=== PATIENT | female | born 1950 ===

== ENCOUNTER 2021-01-11 09:22 | Outpatient (REF) | payer MEDICARE, OTHER, SELFPAY | END 2021-01-11 09:23 | disposition home or self-care (01) | LOC: HO.LAB 09:22 | PROVIDERS: PCP Internal Medicine; Visit Provider Internal Medicine | DX: Z20.822 Contact with and (suspected) exposure to COVID-19 (principal) | CPT/HCPCS: C9803; U0003; U0005 ==

== ENCOUNTER 2021-02-25 13:11 | Outpatient (REF) | payer MEDICARE, OTHER, SELFPAY ==
[2021-02-25 14:47] LABS: Binax Internal Control QC Valid; Binax Lot number: 9864; Binax Now Covid-19 Ag Negative (Negative)
== END 2021-02-25 13:12 | disposition home or self-care (01) ==
LOC: HO.LAB 13:11
PROVIDERS: Visit Provider Internal Medicine
DX: Z20.822 Contact with and (suspected) exposure to COVID-19 (principal)
CPT/HCPCS: 36415; C9803

== ENCOUNTER 2021-03-18 15:23 | Inpatient (IN) | payer MEDICARE, OTHER, SELFPAY ==
--- NOTE | ~2021-03-18 | XR_ITS ---
EXAMINATION: XR CHEST CLINICAL INFORMATION: sob, bilateral crackles COMPARISON: 06/12/2019 TECHNIQUE: Frontal view of the chest was obtained. FINDINGS: Patchy foci of airspace opacification are evident in both lungs. No pleural effusion or pneumothorax. Cardiac and mediastinal contours are normal. No acute osseous findings. Mild degenerative spondylosis in the thoracic spine. XR/XR chest 1V IMPRESSION: Patchy bilateral airspace opacities which are most concerning for viral pneumonia provided the appropriate clinical symptoms. Multifocal subsegmental atelectasis is considered less likely.
[2021-03-18 15:34] VITALS: BP 118/68; PULSE 103; RESP 22; TEMP 35.9; O2SAT 85; BMI 28.9
[2021-03-18 15:47] VITALS: O2SAT 96
--- NOTE | 2021-03-18 16:03 | ECG_ITS ---
Test Reason : SOB Blood Pressure : / mmHG Vent. Rate : 091 BPM Atrial Rate : 091 BPM P-R Int : 146 ms QRS Dur : 094 ms QT Int : 360 ms P-R-T Axes : 023 014 062 degrees QTc Int : 442 ms Normal sinus rhythm Normal ECG When compared with ECG of 26-FEB-2018 13:06, Nonspecific T wave abnormality has replaced inverted T waves in Lateral leads Referred By: Kamala Pereira Electronically Signed By:Arnulfo Wiseman
--- NOTE | 2021-03-18 16:06 | ED_ITS ---
HPI - SOB/Dyspnea General Chief Complaint: Dyspnea Stated Complaint: SOB Time Seen by Provider: 03/18/21 15:48 Source: patient Mode of arrival: ambulatory Limitations: no limitations History of Present Illness HPI Narrative: Patient comes to the emergency room complaining of shortness of breath for 2 days. Patient states that the shortness of breath is worse with exertion and occasional dry cough Patient states that she has not received any of the COVID-19 vaccines. Patient denies chest pain. When patient walked to triage, her initial oxygen saturation is 85% on room air. Related Data Allergies Allergy/AdvReac Type Severity Reaction Status Date / Time No Known Allergies Allergy Verified 03/18/21 15:33 [No Known Allergies*] Review of Systems Review of Systems: Constitutional : No Weight loss, No Fever, No Chills, No Night Sweats, No Fatigue, No Malaise ENT/Mouth : No Hearing loss, No Ear Pain, No Nasal Congestion, No Sinus Pain, No Hoarseness, No sore throat, No Rhinorrhea, No Swallowing Difficulty Eyes: No Eye Pain, No Swelling, No Redness, No Foreign Body, No Discharge, No Vision Changes Cardiovascular : No Chest Pain, No SOB, No Dyspnea on Exertion, No Orthopnea, No Edema, No Palpitations Respiratory : Complaining of dry cough, complaining worsening shortness of breath over the last 24 hours, worse with exertion. Gastrointestinal : No Nausea, No Vomiting, No Diarrhea, No Constipation, No abdominal Pain, No Hematochezia, No Melena Genitourinary : no irregular bleeding, No Dysuria, No Urinary Frequency, No Hematuria, No Urinary Incontinence, No Urgency, No Flank Pain, No Urinary Flow Changes, No Hesitancy Musculoskeletal : No joint pain, No Myalgias, No Joint Swelling Skin : No Skin Lesions, No rash Neuro : No Weakness, No Numbness, No Paresthesias, No Loss of Consciousness, No Dizziness, No Headache Psych : No Anxiety/Panic, No Depression, No SI/HI/AH/VH, No Social Issues, Heme/Lymph: No Bruising, No Bleeding,No Lymphadenopathy Endocrine : No Polyuria, No Polydipsia, No Temperature Intolerance PMF Past Medical History Medical History (Updated 03/18/21 @ 17:37 by Kamala Pereira MD) Hypercholesteremia Hypertension Social History Social History Advance Directives: No Advance Directives Information Provided: Yes Physical Exam Vital Signs: Vital Signs: Last Vital Signs Temp 96.7 F L 03/18/21 15:34 Pulse 103 H 03/18/21 15:34 Resp 22 H 03/18/21 15:34 BP 118/68 03/18/21 15:34 Pulse Ox 96 03/18/21 15:47 BMI result Body Mass Index 28.9 Const: Other: Appearance: Alert. Oriented X3. No acute distress. Eyes: Pupils equal, round and reactive to light. ENT: Pharynx normal. Neck: Normal inspection. Neck supple. No lymph nodes noted. No crepitus CVS: Normal heart rate and rhythm. Pulses normal. Normal S1 and S2 Respiratory: On room air, patient desaturates to 85%. Since patient's oxygen saturation 94% on 4 L. bilateral crackles, no wheezing Abdomen: Soft and nontender. No rigidity. No distention. good BS x4 Skin: Skin warm and dry. Normal skin color. Normal skin turgor. Extremities: No lower extremity edema. No lower extremity edema. No Lacerations. No Rash Neuro: Oriented X 3. No motor deficit. No sensory deficit. Moving all extermities. No slurred speech. Course Course Course Narrative: At this time, all of patient's labs and imaging pending. COVID-19 strongly suspected. Patient was given IV dexamethasone and IV fluids. Patient stable on 4 L nasal cannula. At this time, patient's blood pressure within normal limits, no fever, sepsis not suspected that this time (16:11) Patient tested positive for COVID-19. Oxygen saturation drops to 85% on room air with minimal exertion. Patient being admitted. Patient discussed with Dr. Pérez MDM - SOB/Dyspnea Lab Data Result diagrams: 03/18/21 16:26 03/18/21 16:26 Labs: Lab Results 03/18/21 03/18/21 03/18/21 Range/Units 16:26 16:26 16:26 WBC 6.7 (4.8-10.8) X10*3/uL RBC 4.94 (4.20-5.50) X10*6/uL Hgb 14.7 (12.0-16.0) g/dl Hct 44.3 (37.0-47.0) % MCV 89.7 (80.0-98.0) fL MCH 29.8 (27.0-33.0) pg MCHC 33.2 (31.0-35.0) g/dl RDW 12.8 (11.0-16.0) % Plt Count 200 (160-400) X10*3/uL MPV 10.4 (9.4-12.3) fL Immature Gran % (Auto) 0.6 H (0.0-0.4) % Neut % (Auto) 77.2 H (45-73) % Lymph % (Auto) 15.4 L (20-40) % [place] % (Auto) 6.7 (2-11) % Eos % (Auto) 0.0 (0-4) % Baso % (Auto) 0.1 (0-2) % Lymph # (Auto) 1.0 L (1.2-4.9) X10*3/uL [place] # (Auto) 0.5 (0.1-1.2) X10*3/uL Eos # (Auto) 0.0 (0.0-0.4) X10*3/uL Baso # (Auto) 0.0 (0.0-0.2) X10*3/uL Abs Immat Gran (auto) 0.04 H (0.00-0.03) X10*3/uL Absolute Neuts (auto) 5.2 (2.0-8.3) x10*3/uL Absolute Nucleated RBC 0.000 (0.0-0.012) X10*3/uL Nucleated RBC % (auto) 0.0 (0.0-0.2) /100WBC Smear Tech's Comments VERIFIED PT (9.9-13.0) SEC INR (0.9-1.1) Sodium 139 (135-145) mmol/L Potassium 4.3 (3.3-5.1) mmol/L Chloride 101 (96-108) mmol/L Carbon Dioxide 27 (22-29) mmol/L Anion Gap 15 (12-20) BUN 13 (9-16) mg/dL Creatinine 0.94 (0.5-1.4) mg/dL Estim Creat Clear Calc 56.1 Estimated GFR 59 Random Glucose 121 H (60-115) mg/dL Lactic Acid (0.5-2.0) mmol/L Calcium 8.6 (8.4-10.2) mg/dL Total Bilirubin 0.8 (0.0-1.0) mg/dL Direct Bilirubin 0.4 (0.0-0.5) mg/dL AST 46 H (5-31) U/L ALT 24 (0-31) U/L Alkaline Phosphatase 43 (39-117) U/L Troponin I High Sens 10.9 (<3.5-17.0) ng/L B-Natriuretic Peptide (<100) pg/mL Total Protein 7.3 (6.5-8.0) g/dL Albumin 3.8 (3.5-5.0) g/dL COVID-19 (FERNANDO) (Negative) COVID-19 Clin Com 03/18/21 03/18/21 03/18/21 Range/Units 16:26 16:26 16:26 WBC (4.8-10.8) X10*3/uL RBC (4.20-5.50) X10*6/uL Hgb (12.0-16.0) g/dl Hct (37.0-47.0) % MCV (80.0-98.0) fL MCH (27.0-33.0) pg MCHC (31.0-35.0) g/dl RDW (11.0-16.0) % Plt Count (160-400) X10*3/uL MPV (9.4-12.3) fL Immature Gran % (Auto) (0.0-0.4) % Neut % (Auto) (45-73) % Lymph % (Auto) (20-40) % [place] % (Auto) (2-11) % Eos % (Auto) (0-4) % Baso % (Auto) (0-2) % Lymph # (Auto) (1.2-4.9) X10*3/uL [place] # (Auto) (0.1-1.2) X10*3/uL Eos # (Auto) (0.0-0.4) X10*3/uL Baso # (Auto) (0.0-0.2) X10*3/uL Abs Immat Gran (auto) (0.00-0.03) X10*3/uL Absolute Neuts (auto) (2.0-8.3) x10*3/uL Absolute Nucleated RBC (0.0-0.012) X10*3/uL Nucleated RBC % (auto) (0.0-0.2) /100WBC Smear Tech's Comments PT 13.5 H (9.9-13.0) SEC INR 1.2 H (0.9-1.1) Sodium (135-145) mmol/L Potassium (3.3-5.1) mmol/L Chloride (96-108) mmol/L Carbon Dioxide (22-29) mmol/L Anion Gap (12-20) BUN (9-16) mg/dL Creatinine (0.5-1.4) mg/dL Estim Creat Clear Calc Estimated GFR Random Glucose (60-115) mg/dL Lactic Acid 1.6 (0.5-2.0) mmol/L Calcium (8.4-10.2) mg/dL Total Bilirubin (0.0-1.0) mg/dL Direct Bilirubin (0.0-0.5) mg/dL AST (5-31) U/L ALT (0-31) U/L Alkaline Phosphatase (39-117) U/L Troponin I High Sens (<3.5-17.0) ng/L B-Natriuretic Peptide (<100) pg/mL Total Protein (6.5-8.0) g/dL Albumin (3.5-5.0) g/dL COVID-19 (FERNANDO) Positive A (Negative) COVID-19 Clin Com See Note 03/18/21 Range/Units 16:26 WBC (4.8-10.8) X10*3/uL RBC (4.20-5.50) X10*6/uL Hgb (12.0-16.0) g/dl Hct (37.0-47.0) % MCV (80.0-98.0) fL MCH (27.0-33.0) pg MCHC (31.0-35.0) g/dl RDW (11.0-16.0) % Plt Count (160-400) X10*3/uL MPV (9.4-12.3) fL Immature Gran % (Auto) (0.0-0.4) % Neut % (Auto) (45-73) % Lymph % (Auto) (20-40) % [place] % (Auto) (2-11) % Eos % (Auto) (0-4) % Baso % (Auto) (0-2) % Lymph # (Auto) (1.2-4.9) X10*3/uL [place] # (Auto) (0.1-1.2) X10*3/uL Eos # (Auto) (0.0-0.4) X10*3/uL Baso # (Auto) (0.0-0.2) X10*3/uL Abs Immat Gran (auto) (0.00-0.03) X10*3/uL Absolute Neuts (auto) (2.0-8.3) x10*3/uL Absolute Nucleated RBC (0.0-0.012) X10*3/uL Nucleated RBC % (auto) (0.0-0.2) /100WBC Smear Tech's Comments PT (9.9-13.0) SEC INR (0.9-1.1) Sodium (135-145) mmol/L Potassium (3.3-5.1) mmol/L Chloride (96-108) mmol/L Carbon Dioxide (22-29) mmol/L Anion Gap (12-20) BUN (9-16) mg/dL Creatinine (0.5-1.4) mg/dL Estim Creat Clear Calc Estimated GFR Random Glucose (60-115) mg/dL Lactic Acid (0.5-2.0) mmol/L Calcium (8.4-10.2) mg/dL Total Bilirubin (0.0-1.0) mg/dL Direct Bilirubin (0.0-0.5) mg/dL AST (5-31) U/L ALT (0-31) U/L Alkaline Phosphatase (39-117) U/L Troponin I High Sens (<3.5-17.0) ng/L B-Natriuretic Peptide < 10 (<100) pg/mL Total Protein (6.5-8.0) g/dL Albumin (3.5-5.0) g/dL COVID-19 (FERNANDO) (Negative) COVID-19 Clin Com Discharge Plan Discharge Clinical Impression: COVID-19 Patient Disposition: Admitted As Inpatient
[2021-03-18] MEDS: 0.9 % Sodium Chloride 1,000 ML 999 ML IVCONT (16:30)
[2021-03-18] MEDS: dexAMETHasone sod phosphate 4 MG/ML VIAL 6 MG IVPUSH (16:39)
--- NOTE | 2021-03-18 16:40 | PC.NURSE ---
iv inserted, labs drawn, ekg being obtained, desk monitor applied, pt on 4L O2 nc, covid swab obtained, will continue to monitor
[2021-03-18 16:55] LABS: Basophils Percent Auto 0.1 % (0-2); Hematocrit 44.3 % (37.0-47.0); Hemoglobin 14.7 g/dl (12.0-16.0); Imm Gran Abs Auto 0.04 X10*3/uL (0.00-0.03); Imm Gran Pct Auto 0.6 % (0.0-0.4); Lymphocytes Percent Auto 15.4 % (20-40); MANUAL DIFF FLAG SCAN; Mean Corpuscular HGB Conc 33.2 g/dl (31.0-35.0); Mean Corpuscular Hemoglobin 29.8 pg (27.0-33.0); Mean Corpuscular Volume 89.7 fL (80.0-98.0); Mean Platelet Volume 10.4 fL (9.4-12.3); Monocytes Absolute Auto 0.5 X10*3/uL (0.1-1.2); Monocytes Percent Auto 6.7 % (2-11); Neutrophils Absolute Auto 5.2 x10*3/uL (2.0-8.3); Neutrophils Percent Auto 77.2 % (45-73); Platelet Count 200 X10*3/uL (160-400); Red Blood Count 4.94 X10*6/uL (4.20-5.50); Red Cell Distribution Width 12.8 % (11.0-16.0); SCAN SMEAR FLAG 1; White Blood Count 6.7 X10*3/uL (4.8-10.8)
[2021-03-18 16:59] LABS: INTERNATIONAL NORM RATIO 1.2 (0.9-1.1); Prothrombin Time 13.5 SEC (9.9-13.0)
[2021-03-18 17:00] LABS: COVID-19 Test Positive (Negative)
[2021-03-18 17:01] LABS: Lactic Acid 1.6 mmol/L (0.5-2.0)
[2021-03-18 17:05] LABS: Alanine Aminotransferase 24 U/L (0-31); Albumin Level 3.8 g/dL (3.5-5.0); Alkaline Phosphatase 43 U/L (39-117); Anion Gap 15 (12-20); Aspartate Amino Transferase 46 U/L (5-31); Bilirubin Direct 0.4 mg/dL (0.0-0.5); Bilirubin Total 0.8 mg/dL (0.0-1.0); Blood Urea Nitrogen 13 mg/dL (9-16); Calcium 8.6 mg/dL (8.4-10.2); Carbon Dioxide 27 mmol/L (22-29); Chloride 101 mmol/L (96-108); Creatinine Clr Calc Pharmacy 56.1; Estimated Glomerular Filt Rate 59; Glucose Random 121 mg/dL (60-115); Potassium 4.3 mmol/L (3.3-5.1); Sodium 139 mmol/L (135-145); Total Protein 7.3 g/dL (6.5-8.0)
[2021-03-18 17:10] LABS: B Type Natriuretic Peptide < 10 pg/mL (<100); Troponin-I High Sensitivity 10.9 ng/L (<3.5-17.0)
[2021-03-18 17:22] LABS: SLIDE REVIEW VERIFIED
--- NOTE | 2021-03-18 17:42 | PHA.MEDREC ---
Pharmacy Consult ? Medication Reconciliation Pharmacy has completed the medication reconciliation. Spoke with patient in the ED, she is only taking atorvastatin and losartan/hctz.
--- NOTE | 2021-03-18 17:58 | PC.NURSE ---
ileana bobby- [facility] son- [phone]
[2021-03-18 18:27] VITALS: BP 105/65; PULSE 81; RESP 20; TEMP 36.9; O2SAT 93
--- NOTE | 2021-03-18 18:28 | PM.IMHP ---
History of Present Illness Date of Service: 03/18/21 Chief Complaint: shortness of breath 71-year-old female presented with 2 days of shortness of breath. Patient is unvaccinated. She reports that 2 days ago she started to feel fatigue and difficulty breathing, decreased appetite. Symptoms got progressively worse so she came to the ED today. She has no known COVID exposures. In ED tested positive for COVID, was found to be hypoxic, 86% on room air, cxr with bilateral opacities. Review of Systems Review of Systems: Constitutional: Denies fever, denies Chills Eyes: denies blurry vision ENT: denies sore throat CVS: denies chest pain Respiratory: dyspnea GI: no abdominal pain : denies dysuria MSK: denies neck pain Skin: denies rash Neuro: denies specific motor weakness Psych: denies suicidal ideation Endocrine: denies heat/cold intolerance Hematologic: denies easy bleeding Allergy: denies hives [facility] Medical History Hypercholesteremia Hypertension Family History Mother HTN (hypertension) Father HTN (hypertension) Social History Alcohol intake: never Patient Tobacco Use Status: Former Tobacco user Quit Date: remote Use of substances other than those prescribed or required for medical reasons: No Advance Directives: No Advance Directives Information Provided: Yes Meds Allergies Allergy/AdvReac Type Severity Reaction Status Date / Time No Known Allergies Allergy Verified 03/18/21 15:33 [No Known Allergies*] Active Medications: Current Medications Atorvastatin Calcium (Atorvastatin Calcium 20 Mg Tablet) 20 mg PO DAILY [facility] Non-Formulary Medication (Losartan-Hydrochlorothiazide) 1 tab PO DAILY [facility] Pharmacy Consult (Consult Rx Perform Med Rec) 1 each MISCELLANE ONCE PRN PRN Reason: Consult order Home Medications Medication Instructions Recorded Confirmed Last Taken Type atorvastatin 20 mg tablet 1 tab PO DAILY 03/18/21 03/18/21 03/18/21 History losartan 100 1 tab PO DAILY 03/18/21 03/18/21 03/18/21 History mg-hydrochlorothiazide 25 mg tablet Physical Exam Vital Signs and Narrative: Vital Signs: Last Vital Signs Temp 96.7 F L 03/18/21 15:34 Pulse 103 H 03/18/21 15:34 Resp 22 H 03/18/21 15:34 BP 118/68 03/18/21 15:34 Pulse Ox 96 03/18/21 15:47 BMI result Body Mass Index 28.9 General: no acute distress, fatigued HEENT: atraumatic Neck: normal to visual inspection CVS: S1, S2, RRR Resp: Crackles bilateral Chest: non tender GI: soft, non tender, non distended : no CVA tenderness Skin: no rashes Extremities: no edema Neuro: Oriented X3, grossly intact Psych: cooperative Results Labs CBC and Chem 7: 03/18/21 16:26 03/18/21 16:26 Labs: Laboratory Results - last 24 hr 03/18/21 03/18/21 03/18/21 16:26 16:26 16:26 MCV 89.7 MCH 29.8 MCHC 33.2 RDW 12.8 Plt Count 200 MPV 10.4 Immature Gran % (Auto) 0.6 H Neut % (Auto) 77.2 H Lymph % (Auto) 15.4 L [place] % (Auto) 6.7 Eos % (Auto) 0.0 Baso % (Auto) 0.1 Lymph # (Auto) 1.0 L [place] # (Auto) 0.5 Eos # (Auto) 0.0 Baso # (Auto) 0.0 Abs Immat Gran (auto) 0.04 H Absolute Neuts (auto) 5.2 Absolute Nucleated RBC 0.000 Nucleated RBC % (auto) 0.0 Smear Tech's Comments VERIFIED PT INR Anion Gap 15 Estim Creat Clear Calc 56.1 Estimated GFR 59 Random Glucose 121 H Lactic Acid Calcium 8.6 Total Bilirubin 0.8 Direct Bilirubin 0.4 AST 46 H ALT 24 Alkaline Phosphatase 43 Troponin I High Sens 10.9 B-Natriuretic Peptide Total Protein 7.3 Albumin 3.8 COVID-19 (FERNANDO) COVID-19 Clin Com 03/18/21 03/18/21 03/18/21 16:26 16:26 16:26 MCV MCH MCHC RDW Plt Count MPV Immature Gran % (Auto) Neut % (Auto) Lymph % (Auto) [place] % (Auto) Eos % (Auto) Baso % (Auto) Lymph # (Auto) [place] # (Auto) Eos # (Auto) Baso # (Auto) Abs Immat Gran (auto) Absolute Neuts (auto) Absolute Nucleated RBC Nucleated RBC % (auto) Smear Tech's Comments PT 13.5 H INR 1.2 H Anion Gap Estim Creat Clear Calc Estimated GFR Random Glucose Lactic Acid 1.6 Calcium Total Bilirubin Direct Bilirubin AST ALT Alkaline Phosphatase Troponin I High Sens B-Natriuretic Peptide Total Protein Albumin COVID-19 (FERNANDO) Positive A COVID-19 Clin Com See Note 03/18/21 16:26 MCV MCH MCHC RDW Plt Count MPV Immature Gran % (Auto) Neut % (Auto) Lymph % (Auto) [place] % (Auto) Eos % (Auto) Baso % (Auto) Lymph # (Auto) [place] # (Auto) Eos # (Auto) Baso # (Auto) Abs Immat Gran (auto) Absolute Neuts (auto) Absolute Nucleated RBC Nucleated RBC % (auto) Smear Tech's Comments PT INR Anion Gap Estim Creat Clear Calc Estimated GFR Random Glucose Lactic Acid Calcium Total Bilirubin Direct Bilirubin AST ALT Alkaline Phosphatase Troponin I High Sens B-Natriuretic Peptide < 10 Total Protein Albumin COVID-19 (FERNANDO) COVID-19 Clin Com Imaging Radiologist's Impressions: Impressions Chest X-Ray 03/18/21 16:59 IMPRESSION: Patchy bilateral airspace opacities which are most concerning for viral pneumonia provided the appropriate clinical symptoms. Multifocal subsegmental atelectasis is considered less likely. Assessment and Plan (1) COVID-19: Status: Acute 71F presented with sob, found to have covid acute hypoxic respiratory failure secondary to COVID pneumonia dexamethasone remdesivir wean O2 as tolerated monitor inflammatory markers hypertension losartan/HCTZ hyperlipidemia Lipitor DVT prophylaxis with Lovenox full code Quality Stroke Does the patient have a stroke diagnosis?: No VTE Prior VTE?: No VTE Risk Level:: Medical - moderate - high VTE Device Contraindication: Treatment Not Indicated VTE Drug Contraindication: N/A - Med Ordered
[2021-03-18] MEDS: Enoxaparin Sodium 40 MG/0.4 ML SYRINGE SUBCUT (19:50)
[2021-03-18] MEDS: Remdesivir 200 MG in 0.9 % Sodium Chloride 210 ML 105 MG IV (19:51)
--- NOTE | 2021-03-18 19:55 | PC.NURSE ---
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
[2021-03-18 20:00] VITALS: BP 119/59; PULSE 82; RESP 20; TEMP 36.7; O2SAT 95
--- NOTE | 2021-03-18 20:09 | PC.NURSE ---
called floor to give report, unable to get ahold of nursing staff
[2021-03-18 23:22] VITALS: BP 119/67; PULSE 80; RESP 20; TEMP 36.1; O2SAT 92
[2021-03-19] VITALS (7 sets, daily range): BP systolic 101–124; BP diastolic 62–79; PULSE 72–80; RESP 18–20; TEMP 35.6–36.9; O2SAT 85–95
[2021-03-19 06:50] LABS: Hematocrit 41.7 % (37.0-47.0); Hemoglobin 13.1 g/dl (12.0-16.0); Mean Corpuscular HGB Conc 31.4 g/dl (31.0-35.0); Mean Corpuscular Hemoglobin 28.9 pg (27.0-33.0); Mean Corpuscular Volume 92.1 fL (80.0-98.0); Mean Platelet Volume 10.4 fL (9.4-12.3); Platelet Count 207 X10*3/uL (160-400); Red Blood Count 4.53 X10*6/uL (4.20-5.50); Red Cell Distribution Width 12.7 % (11.0-16.0); White Blood Count 4.3 X10*3/uL (4.8-10.8)
[2021-03-19 07:04] LABS: Anion Gap 13 (12-20); Blood Urea Nitrogen 15 mg/dL (9-16); C Reactive Protein 9.56 mg/dL (< or = 0.50); Calcium 8.5 mg/dL (8.4-10.2); Carbon Dioxide 27 mmol/L (22-29); Chloride 107 mmol/L (96-108); Creatinine Clr Calc Pharmacy 72.3; Estimated Glomerular Filt Rate > 60; Glucose Fasting 144 mg/dL (60-99); Potassium 4.6 mmol/L (3.3-5.1); Sodium 142 mmol/L (135-145)
[2021-03-19] MEDS: Losartan Potassium 50 MG TABLET 100 MG PO (08:54)
[2021-03-19] MEDS: hydroCHLOROthiazide 25 MG TABLET PO (08:55)
[2021-03-19] MEDS: dexAMETHasone sod phosphate 4 MG/ML VIAL 6 MG IVPUSH (08:55)
[2021-03-19] MEDS: Atorvastatin Calcium 20 MG TABLET PO (08:55)
[2021-03-19] MEDS: 0.9 % Sodium Chloride Flush 3 ML SYRINGE IVFLUSH ×2 (08:55→15:48)
--- NOTE | 2021-03-19 13:15 | MHC.CM.PN ---
Patient is Covid (+); CM spoke with Patient over the phone at room extension [phone] and addressed IMM with her(copy on the chart).Patient lives in a house with her Son and Daughter and she has no services nor DME. Home/no services is the goal for dc and CM has initiated and will follow for dc planning. Patient is not covid vaccinated. PCP is Dr. Patricia Colunga.
--- NOTE | 2021-03-19 14:19 | P.PNIM_ITS ---
Subjective Subjective Date of Service: 03/19/21 Interval History: patient seen examined at bedside. She appears comfortable. Sleeping with no acute distress. Arousable. Answers questions appropriately. Review of Systems Review of Systems: Yes all other systems are reviewed and are negative Physical Exam Vital Signs: Vital Signs: Last Vital Signs Temp 97.6 F 03/19/21 11:33 Pulse 76 03/19/21 11:33 Resp 20 03/19/21 11:33 BP 103/62 03/19/21 11:33 Pulse Ox 87 L 03/19/21 11:33 BMI result Body Mass Index 28.9 Const: General: cooperative and no acute distress Resp: Effort & Inspection: normal respiratory effort Cardio: Rate: regular rate Rhythm: regular rhythm GI: Palpation (GI): Soft to palpation Auscultation: normal bowel sounds Extrem: General: Yes normal to inspection and Yes no pedal edema Objective Data Active Medications Acetaminophen (Acetaminophen 325 Mg Tablet) 650 mg PO Q6H PRN PRN Reason: Pain, Mild (Pain Scale 1-3) Atorvastatin Calcium (Atorvastatin Calcium 20 Mg Tablet) 20 mg PO DAILY [facility] Last Admin: 03/19/21 08:55 Dose: 20 mg Documented by: TORRIE Dexamethasone Sodium Phosphate (Dexamethasone Sod Phosphate 4 Mg/Ml Vial) 6 mg IVPUSH DAILY [facility] Last Admin: 03/19/21 08:55 Dose: 6 mg Documented by: TORRIE Enoxaparin Sodium (Enoxaparin Sodium 40 Mg/0.4 Ml Syringe) 40 mg SUBCUT Q24H [facility] Last Admin: 03/18/21 19:50 Dose: 40 mg Documented by: CARLY Hydrochlorothiazide (Hydrochlorothiazide 25 Mg Tablet) 25 mg PO DAILY [facility]; Protocol Last Admin: 03/19/21 08:55 Dose: 25 mg Documented by: TORRIE Remdesivir 100 mg/ Sodium (Chloride) 230 mls @ 115 mls/hr IV Q24H [facility] Stop: 03/22/21 20:29 Losartan Potassium (Losartan Potassium 50 Mg Tablet) 100 mg PO DAILY [facility]; Protocol Last Admin: 03/19/21 08:54 Dose: 100 mg Documented by: TORRIE Pharmacy Consult (Consult Rx Perform Med Rec) 1 each MISCELLANE ONCE PRN PRN Reason: Consult order Sodium Chloride (0.9 % Sodium Chloride Flush 3 Ml Syringe) 3 ml IVFLUSH QSHIFT [facility] Last Admin: 03/19/21 08:55 Dose: 3 ml Documented by: TORRIE Labs CBC & Chem 7: 03/19/21 06:24 03/19/21 06:24 Labs: Laboratory Results - last 24 hr 03/18/21 03/18/21 03/18/21 16:26 16:26 16:26 MCV 89.7 MCH 29.8 MCHC 33.2 RDW 12.8 Plt Count 200 MPV 10.4 Immature Gran % (Auto) 0.6 H Neut % (Auto) 77.2 H Lymph % (Auto) 15.4 L [place] % (Auto) 6.7 Eos % (Auto) 0.0 Baso % (Auto) 0.1 Lymph # (Auto) 1.0 L [place] # (Auto) 0.5 Eos # (Auto) 0.0 Baso # (Auto) 0.0 Abs Immat Gran (auto) 0.04 H Absolute Neuts (auto) 5.2 Absolute Nucleated RBC 0.000 Nucleated RBC % (auto) 0.0 Smear Tech's Comments VERIFIED PT INR Anion Gap 15 Estim Creat Clear Calc 56.1 Estimated GFR 59 Random Glucose 121 H Fasting Glucose Lactic Acid Calcium 8.6 Total Bilirubin 0.8 Direct Bilirubin 0.4 AST 46 H ALT 24 Alkaline Phosphatase 43 Troponin I High Sens 10.9 C-Reactive Protein B-Natriuretic Peptide Total Protein 7.3 Albumin 3.8 COVID-19 (FERNANDO) COVID-19 Clin Com 03/18/21 03/18/21 03/18/21 16:26 16:26 16:26 MCV MCH MCHC RDW Plt Count MPV Immature Gran % (Auto) Neut % (Auto) Lymph % (Auto) [place] % (Auto) Eos % (Auto) Baso % (Auto) Lymph # (Auto) [place] # (Auto) Eos # (Auto) Baso # (Auto) Abs Immat Gran (auto) Absolute Neuts (auto) Absolute Nucleated RBC Nucleated RBC % (auto) Smear Tech's Comments PT 13.5 H INR 1.2 H Anion Gap Estim Creat Clear Calc Estimated GFR Random Glucose Fasting Glucose Lactic Acid 1.6 Calcium Total Bilirubin Direct Bilirubin AST ALT Alkaline Phosphatase Troponin I High Sens C-Reactive Protein B-Natriuretic Peptide Total Protein Albumin COVID-19 (FERNANDO) Positive A COVID-19 Clin Com See Note 03/18/21 03/19/21 03/19/21 16:26 06:24 06:24 MCV 92.1 MCH 28.9 MCHC 31.4 RDW 12.7 Plt Count 207 MPV 10.4 Immature Gran % (Auto) Neut % (Auto) Lymph % (Auto) [place] % (Auto) Eos % (Auto) Baso % (Auto) Lymph # (Auto) [place] # (Auto) Eos # (Auto) Baso # (Auto) Abs Immat Gran (auto) Absolute Neuts (auto) Absolute Nucleated RBC 0.000 Nucleated RBC % (auto) 0.0 Smear Tech's Comments PT INR Anion Gap 13 Estim Creat Clear Calc 72.3 Estimated GFR > 60 Random Glucose Fasting Glucose 144 H Lactic Acid Calcium 8.5 Total Bilirubin Direct Bilirubin AST ALT Alkaline Phosphatase Troponin I High Sens C-Reactive Protein 9.56 H B-Natriuretic Peptide < 10 Total Protein Albumin COVID-19 (FERNANDO) COVID-19 Clin Com Assessment and Plan (1) Acute respiratory failure with hypoxia: Status: Acute (2) COVID-19: Status: Acute Assessment and Plan: #?acute hypoxic respiratory failure secondary to COVID pneumonia ?dexamethasone ?remdesivir ?wean O2 as tolerated ?monitor? inflammatory markers #?hypertension ?losartan/HCTZ #?hyperlipidemia ?Lipitor ?DVT prophylaxis? with Lovenox ?full code Quality Stroke Does the patient have a stroke diagnosis?: No VTE Prior VTE?: No VTE Risk Level:: Medical - moderate - high VTE Device Contraindication: Treatment Not Indicated VTE Drug Contraindication: N/A - Med Ordered
[2021-03-19] MEDS: Acetaminophen 325 MG TABLET 650 MG PO (15:52)
[2021-03-19] MEDS: Remdesivir 100 MG in 0.9 % Sodium Chloride 230 ML 115 MG IV (18:13)
[2021-03-19] MEDS: Enoxaparin Sodium 40 MG/0.4 ML SYRINGE SUBCUT (18:13)
[2021-03-20] VITALS (7 sets, daily range): BP systolic 99–121; BP diastolic 56–70; PULSE 56–86; RESP 18–20; TEMP 36.1–36.7; O2SAT 90–98
[2021-03-20] MEDS: 0.9 % Sodium Chloride Flush 3 ML SYRINGE IVFLUSH ×4 (00:25→22:13)
[2021-03-20] MEDS: Losartan Potassium 50 MG TABLET 100 MG PO (11:14)
[2021-03-20] MEDS: dexAMETHasone sod phosphate 4 MG/ML VIAL 6 MG IVPUSH (11:15)
[2021-03-20] MEDS: hydroCHLOROthiazide 25 MG TABLET PO (11:15)
[2021-03-20] MEDS: Atorvastatin Calcium 20 MG TABLET PO (11:15)
--- NOTE | 2021-03-20 12:48 | P.PNIM_ITS ---
Subjective Subjective Date of Service: 03/20/21 Interval History: pt seen and examined at bedside. no overnight events. denies any worsening SOB, no chest pain, no abd pain n or v. no urinary symptoms Review of Systems Review of Systems: Yes all other systems are reviewed and are negative Physical Exam Vital Signs: Vital Signs: Last Vital Signs Temp 97.5 F 03/20/21 11:47 Pulse 79 03/20/21 11:47 Resp 18 03/20/21 11:47 BP 104/60 03/20/21 11:47 Pulse Ox 92 03/20/21 11:47 BMI result Body Mass Index 28.9 Const: General: cooperative and no acute distress Orientation/consciousness: patient oriented x3 Resp: Effort & Inspection: normal respiratory effort Auscultation: clear to auscultation bilaterally Cardio: Rate: regular rate Rhythm: regular rhythm GI: Palpation (GI): Soft to palpation Auscultation: normal bowel sounds Skin: General skin exam: no rashes or lesions noted Neuro: General: patient oriented x3 Extrem: General: Yes normal to inspection and Yes no pedal edema Objective Data Active Medications Acetaminophen (Acetaminophen 325 Mg Tablet) 650 mg PO Q6H PRN PRN Reason: Pain, Mild (Pain Scale 1-3) Last Admin: 03/19/21 15:52 Dose: 650 mg Documented by: CARMENZA Atorvastatin Calcium (Atorvastatin Calcium 20 Mg Tablet) 20 mg PO DAILY [facility] Last Admin: 03/20/21 11:15 Dose: 20 mg Documented by: SHAWNA Dexamethasone Sodium Phosphate (Dexamethasone Sod Phosphate 4 Mg/Ml Vial) 6 mg IVPUSH DAILY [facility] Last Admin: 03/20/21 11:15 Dose: 6 mg Documented by: SHAWNA Enoxaparin Sodium (Enoxaparin Sodium 40 Mg/0.4 Ml Syringe) 40 mg SUBCUT Q24H [facility] Last Admin: 03/19/21 18:13 Dose: 40 mg Documented by: CARMENZA Hydrochlorothiazide (Hydrochlorothiazide 25 Mg Tablet) 25 mg PO DAILY [facility]; Protocol Last Admin: 03/20/21 11:15 Dose: 25 mg Documented by: SHAWNA Remdesivir 100 mg/ Sodium (Chloride) 230 mls @ 115 mls/hr IV Q24H [facility] Stop: 03/22/21 20:29 Last Infusion: 03/19/21 21:10 Dose: 0 mls/hr Documented by: CARMENZA Losartan Potassium (Losartan Potassium 50 Mg Tablet) 100 mg PO DAILY [facility]; Protocol Last Admin: 03/20/21 11:14 Dose: 100 mg Documented by: SHAWNA Pharmacy Consult (Consult Rx Perform Med Rec) 1 each MISCELLANE ONCE PRN PRN Reason: Consult order Sodium Chloride (0.9 % Sodium Chloride Flush 3 Ml Syringe) 3 ml IVFLUSH QSHIFT [facility] Last Admin: 03/20/21 11:14 Dose: 3 ml Documented by: SHAWNA Labs CBC & Chem 7: 03/19/21 06:24 03/19/21 06:24 Microbiology Microbiology Results: Microbiology 03/18/21 16:29 Blood Culture - Preliminary Blood - Venous No growth after 24 hours. 03/18/21 16:35 Blood Culture - Preliminary Blood - Venous No growth after 24 hours. Assessment and Plan (1) Acute respiratory failure with hypoxia: Status: Acute (2) COVID-19: Status: Acute Assessment and Plan: This is a 71-year-old female with past medical history of hypertension and hyperlipidemia, who presented to the hospital with shortness of breath found to be positive for COVID-19. Patient is on vaccinated. #?acute hypoxic respiratory failure secondary to COVID pneumonia -?dexamethasone d3 -?remdesivir d3 -?wean O2 as tolerated #?hypertension ?losartan/HCTZ #?hyperlipidemia - cont?Lipitor ?DVT prophylaxis? with Lovenox ?full code Quality Stroke Does the patient have a stroke diagnosis?: No VTE Prior VTE?: No VTE Risk Level:: Medical - moderate - high VTE Device Contraindication: Treatment Not Indicated VTE Drug Contraindication: N/A - Med Ordered
[2021-03-20] MEDS: Remdesivir 100 MG in 0.9 % Sodium Chloride 230 ML 115 MG IV (18:34)
[2021-03-20] MEDS: Enoxaparin Sodium 40 MG/0.4 ML SYRINGE SUBCUT (18:35)
[2021-03-21 04:00] VITALS: PULSE 57; RESP 18; O2SAT 94
[2021-03-21 08:00] VITALS: BP 125/64; PULSE 67; RESP 18; TEMP 36.5; O2SAT 91
[2021-03-21] MEDS: Losartan Potassium 50 MG TABLET 100 MG PO (10:05)
[2021-03-21] MEDS: dexAMETHasone sod phosphate 4 MG/ML VIAL 6 MG IVPUSH (10:05)
[2021-03-21] MEDS: hydroCHLOROthiazide 25 MG TABLET PO (10:05)
[2021-03-21] MEDS: 0.9 % Sodium Chloride Flush 3 ML SYRINGE IVFLUSH ×3 (10:05→20:46)
[2021-03-21] MEDS: Atorvastatin Calcium 20 MG TABLET PO (10:05)
[2021-03-21 11:38] VITALS: BP 109/64; PULSE 61; RESP 18; TEMP 36.3; O2SAT 94
--- NOTE | 2021-03-21 12:50 | HO.PM.IMPN ---
Subjective Subjective Date of Service: 03/21/21 Interval History: pt seen and examined at bedside. reports feeling better today. no Chest pain. SOB stable no increasing cough-stable. no abd pain, no urniary sx Review of Systems Review of Systems: Yes all other systems are reviewed and are negative Physical Exam Vital Signs: Vital Signs: Last Vital Signs Temp 97.4 F 03/21/21 11:38 Pulse 61 03/21/21 11:38 Resp 18 03/21/21 11:38 BP 109/64 03/21/21 11:38 Pulse Ox 94 03/21/21 11:38 BMI result Body Mass Index 28.9 Const: General: cooperative and no acute distress Orientation/consciousness: patient oriented x3 Resp: Other: crackles bilaterally Effort & Inspection: normal respiratory effort Cardio: Rate: regular rate Rhythm: regular rhythm GI: Palpation (GI): Soft to palpation Auscultation: normal bowel sounds Neuro: General: patient oriented x3 Extrem: General: Yes normal to inspection and Yes no pedal edema Objective Data Active Medications Acetaminophen (Acetaminophen 325 Mg Tablet) 650 mg PO Q6H PRN PRN Reason: Pain, Mild (Pain Scale 1-3) Last Admin: 03/19/21 15:52 Dose: 650 mg Documented by: CARMENZA Atorvastatin Calcium (Atorvastatin Calcium 20 Mg Tablet) 20 mg PO DAILY [facility] Last Admin: 03/21/21 10:05 Dose: 20 mg Documented by: BRIE Dexamethasone Sodium Phosphate (Dexamethasone Sod Phosphate 4 Mg/Ml Vial) 6 mg IVPUSH DAILY [facility] Last Admin: 03/21/21 10:05 Dose: 6 mg Documented by: BRIE Enoxaparin Sodium (Enoxaparin Sodium 40 Mg/0.4 Ml Syringe) 40 mg SUBCUT Q24H [facility] Last Admin: 03/20/21 18:35 Dose: 40 mg Documented by: BRIE Hydrochlorothiazide (Hydrochlorothiazide 25 Mg Tablet) 25 mg PO DAILY [facility]; Protocol Last Admin: 03/21/21 10:05 Dose: 25 mg Documented by: BRIE Remdesivir 100 mg/ Sodium (Chloride) 230 mls @ 115 mls/hr IV Q24H [facility] Stop: 03/22/21 20:29 Last Infusion: 03/20/21 23:42 Dose: 0 mls/hr Documented by: ARTUR Losartan Potassium (Losartan Potassium 50 Mg Tablet) 100 mg PO DAILY [facility]; Protocol Last Admin: 03/21/21 10:05 Dose: 100 mg Documented by: BRIE Pharmacy Consult (Consult Rx Perform Med Rec) 1 each MISCELLANE ONCE PRN PRN Reason: Consult order Sodium Chloride (0.9 % Sodium Chloride Flush 3 Ml Syringe) 3 ml IVFLUSH QSHIFT [facility] Last Admin: 03/21/21 10:05 Dose: 3 ml Documented by: BRIE Labs CBC & Chem 7: 03/19/21 06:24 03/19/21 06:24 Microbiology Microbiology Results: Microbiology 03/18/21 16:29 Blood Culture - Preliminary Blood - Venous No growth after 48 hours. 03/18/21 16:35 Blood Culture - Preliminary Blood - Venous No growth after 48 hours. Assessment and Plan (1) Acute respiratory failure with hypoxia: Status: Acute (2) COVID-19: Status: Acute Assessment and Plan: This is a 71-year-old female with past medical history of hypertension and hyperlipidemia, who presented to the hospital with shortness of breath found to be positive for COVID-19. Patient is on vaccinated. #?acute hypoxic respiratory failure secondary to COVID pneumonia - Desats on 4L of O2 to 90% - increased to 5L -?dexamethasone d4 -?remdesivir d4 -?wean O2 as tolerated - monitor resp status #?hypertension - stable ?losartan/HCTZ #?hyperlipidemia - cont?Lipitor ?DVT prophylaxis? with Lovenox ?full code Quality Stroke Does the patient have a stroke diagnosis?: No VTE Prior VTE?: No VTE Risk Level:: Medical - moderate - high VTE Device Contraindication: Treatment Not Indicated VTE Drug Contraindication: N/A - Med Ordered
[2021-03-21 15:18] VITALS: BP 100/59; PULSE 68; RESP 20; TEMP 36.7; O2SAT 94
[2021-03-21] MEDS: Remdesivir 100 MG in 0.9 % Sodium Chloride 230 ML 115 MG IV (18:41)
[2021-03-21] MEDS: Enoxaparin Sodium 40 MG/0.4 ML SYRINGE SUBCUT (18:45)
[2021-03-21 19:13] VITALS: BP 122/72; PULSE 86; RESP 20; TEMP 36.7; O2SAT 93
[2021-03-21 23:09] VITALS: BP 121/73; PULSE 63; RESP 20; TEMP 36.7; O2SAT 94
[2021-03-22 03:31] VITALS: BP 134/68; PULSE 59; RESP 16; TEMP 36.2; O2SAT 95
[2021-03-22 07:47] VITALS: BP 112/66; PULSE 62; RESP 18; TEMP 37.2; O2SAT 94
[2021-03-22] MEDS: Losartan Potassium 50 MG TABLET 100 MG PO (09:27)
[2021-03-22] MEDS: hydroCHLOROthiazide 25 MG TABLET PO (09:27)
[2021-03-22] MEDS: dexAMETHasone sod phosphate 4 MG/ML VIAL 6 MG IVPUSH (09:28)
[2021-03-22] MEDS: Atorvastatin Calcium 20 MG TABLET PO (09:28)
[2021-03-22] MEDS: 0.9 % Sodium Chloride Flush 3 ML SYRINGE IVFLUSH ×3 (09:28→20:05)
--- NOTE | 2021-03-22 10:59 | HO.PM.IMPN ---
Subjective Subjective Date of Service: 03/22/21 Interval History: cc: sob interval history: still weak, sob, but much improved Cardiovascular Cardiovascular: Reports no additional cardiovascular complaints Respiratory Respiratory: Reports no additional respiratory complaints Physical Exam Vital Signs: Vital Signs: Last Vital Signs Temp 98.9 F 03/22/21 07:47 Pulse 62 03/22/21 07:47 Resp 18 03/22/21 07:47 BP 112/66 03/22/21 07:47 Pulse Ox 94 03/22/21 07:47 BMI result Body Mass Index 28.9 General: AO X 3, no acute distress Resp: crackles bilateral, no accessory muscles used CVS: S1,S2,RRR GI: soft, non tender, non distended Neuro: motor grossly intact, alert Psych: appropriate affect, appropriate insight Objective Data Active Medications Acetaminophen (Acetaminophen 325 Mg Tablet) 650 mg PO Q6H PRN PRN Reason: Pain, Mild (Pain Scale 1-3) Last Admin: 03/19/21 15:52 Dose: 650 mg Documented by: CARMENZA Atorvastatin Calcium (Atorvastatin Calcium 20 Mg Tablet) 20 mg PO DAILY [facility] Last Admin: 03/22/21 09:28 Dose: 20 mg Documented by: MARIE Dexamethasone Sodium Phosphate (Dexamethasone Sod Phosphate 4 Mg/Ml Vial) 6 mg IVPUSH DAILY [facility] Last Admin: 03/22/21 09:28 Dose: 6 mg Documented by: MARIE Enoxaparin Sodium (Enoxaparin Sodium 40 Mg/0.4 Ml Syringe) 40 mg SUBCUT Q24H [facility] Last Admin: 03/21/21 18:45 Dose: 40 mg Documented by: SHAWNA Hydrochlorothiazide (Hydrochlorothiazide 25 Mg Tablet) 25 mg PO DAILY [facility]; Protocol Last Admin: 03/22/21 09:27 Dose: 25 mg Documented by: MARIE Remdesivir 100 mg/ Sodium (Chloride) 230 mls @ 115 mls/hr IV Q24H [facility] Stop: 03/22/21 20:29 Last Infusion: 03/22/21 00:03 Dose: 0 mls/hr Documented by: LAILA Losartan Potassium (Losartan Potassium 50 Mg Tablet) 100 mg PO DAILY [facility]; Protocol Last Admin: 03/22/21 09:27 Dose: 100 mg Documented by: MARIE Pharmacy Consult (Consult Rx Perform Med Rec) 1 each MISCELLANE ONCE PRN PRN Reason: Consult order Sodium Chloride (0.9 % Sodium Chloride Flush 3 Ml Syringe) 3 ml IVFLUSH QSHIFT [facility] Last Admin: 03/22/21 09:28 Dose: 3 ml Documented by: MARIE Labs CBC & Chem 7: 03/19/21 06:24 03/19/21 06:24 Assessment and Plan (1) Acute respiratory failure with hypoxia: Status: Acute (2) COVID-19: Status: Acute Assessment and Plan: 71-year-old female with past medical history of hypertension and hyperlipidemia, who presented to the hospital with shortness of breath found to be positive for COVID-19. Patient is not vaccinated. acute hypoxic respiratory failure secondary to COVID pneumonia - weaned to 3L today -?dexamethasone d5 -?remdesivir d5 -?wean O2 as tolerated - monitor resp status hypertension - stable ?losartan/HCTZ hyperlipidemia - cont?Lipitor ?DVT prophylaxis? with Lovenox ?full code Quality Stroke Does the patient have a stroke diagnosis?: No VTE Prior VTE?: No VTE Risk Level:: Medical - moderate - high VTE Device Contraindication: Treatment Not Indicated VTE Drug Contraindication: N/A - Med Ordered
[2021-03-22 11:29] VITALS: BP 104/61; PULSE 62; RESP 18; TEMP 36.6; O2SAT 94
--- NOTE | 2021-03-22 15:00 | MHC.CM.PN ---
Female 71 Covid+ No discharge today. The weaning process is going well. Patient is requiring 3-5L O2 via NC. Day 5 Remdesivir and Decadron. DP home no services family will provide transportation.
[2021-03-22 15:20] VITALS: BP 99/58; PULSE 88; RESP 16; TEMP 36.3; O2SAT 85
[2021-03-22] MEDS: Enoxaparin Sodium 40 MG/0.4 ML SYRINGE SUBCUT (18:07)
[2021-03-22] MEDS: Remdesivir 100 MG in 0.9 % Sodium Chloride 230 ML 115 MG IV (18:10)
[2021-03-22 19:31] VITALS: BP 116/72; PULSE 71; RESP 13; TEMP 35.8; O2SAT 95
[2021-03-23 00:41] VITALS: BP 96/85; PULSE 60; RESP 16; TEMP 35.9; O2SAT 92
--- NOTE | 2021-03-23 01:34 | PC.NURSE ---
Patient rude to staff members. For 12am vitals manual blood pressure recheck needed along with changing batteries out of quality assurance monitor and patient refused
[2021-03-23 03:42] VITALS: BP 108/78; PULSE 63; RESP 16; TEMP 35.9; O2SAT 92
[2021-03-23 06:46] LABS: Hematocrit 41.3 % (37.0-47.0); Hemoglobin 13.8 g/dl (12.0-16.0); Mean Corpuscular HGB Conc 33.4 g/dl (31.0-35.0); Mean Corpuscular Hemoglobin 29.8 pg (27.0-33.0); Mean Corpuscular Volume 89.2 fL (80.0-98.0); Platelet Count 344 X10*3/uL (160-400); Red Blood Count 4.63 X10*6/uL (4.20-5.50); Red Cell Distribution Width 12.4 % (11.0-16.0); White Blood Count 10.2 X10*3/uL (4.8-10.8)
[2021-03-23 07:16] LABS: Anion Gap 10 (12-20); Blood Urea Nitrogen 18 mg/dL (9-16); C Reactive Protein 1.52 mg/dL (< or = 0.50); Calcium 9.1 mg/dL (8.4-10.2); Carbon Dioxide 28 mmol/L (22-29); Chloride 105 mmol/L (96-108); Creatinine Clr Calc Pharmacy 66.8; Estimated Glomerular Filt Rate > 60; Glucose Fasting 151 mg/dL (60-99); Potassium 4.2 mmol/L (3.3-5.1); Sodium 139 mmol/L (135-145)
[2021-03-23 08:00] VITALS: BP 116/69; PULSE 62; RESP 16; TEMP 35.1; O2SAT 91
[2021-03-23] MEDS: dexAMETHasone sod phosphate 4 MG/ML VIAL 6 MG IVPUSH (10:12)
[2021-03-23] MEDS: 0.9 % Sodium Chloride Flush 3 ML SYRINGE IVFLUSH ×2 (10:12→16:58)
[2021-03-23] MEDS: Losartan Potassium 50 MG TABLET 100 MG PO (10:13)
[2021-03-23] MEDS: Atorvastatin Calcium 20 MG TABLET PO (10:13)
[2021-03-23] MEDS: hydroCHLOROthiazide 25 MG TABLET PO (10:13)
--- NOTE | 2021-03-23 12:57 | HO.PM.IMPN ---
Subjective Subjective Date of Service: 03/23/21 Interval History: the patient was seen and evaluated this morning Laying in bed, feels weak and has no energy Still on nasal cannula requiring 4-5 L Denies any fever, chills or chest pain No reported other overnight events. Systemic review: No fever, chills but reports generalized weakness No chest pain, palpitation Reporting shortness of breath or coughing No abdominal pain, nausea or vomiting No urinary symptoms No any rash or wounds Physical Exam Vital Signs: Vital Signs: Last Vital Signs Temp 95.2 F L 03/23/21 08:00 Pulse 62 03/23/21 08:00 Resp 16 03/23/21 08:00 BP 116/69 03/23/21 08:00 Pulse Ox 91 L 03/23/21 08:00 BMI result Body Mass Index 28.9 Const: Other: Constitutional : Alert, oriented, not in distress Neck : Normal inspection, Supple Cardiovascular : No JVP, no lower extremity edema Respiratory : Chest wall moving bilaterally, not in distress, nasal cannula Gastrointestinal: soft, lax, Normal bowel sounds, Non tender Skin : Warm, Dry Neurological : Alert & oriented x3, No focal deficit Objective Data Active Medications Acetaminophen (Acetaminophen 325 Mg Tablet) 650 mg PO Q6H PRN PRN Reason: Pain, Mild (Pain Scale 1-3) Last Admin: 03/19/21 15:52 Dose: 650 mg Documented by: CARMENZA Atorvastatin Calcium (Atorvastatin Calcium 20 Mg Tablet) 20 mg PO DAILY [facility] Last Admin: 03/23/21 10:13 Dose: 20 mg Documented by: ADRI Dexamethasone Sodium Phosphate (Dexamethasone Sod Phosphate 4 Mg/Ml Vial) 6 mg IVPUSH DAILY [facility] Last Admin: 03/23/21 10:12 Dose: 6 mg Documented by: ADRI Enoxaparin Sodium (Enoxaparin Sodium 40 Mg/0.4 Ml Syringe) 40 mg SUBCUT Q24H [facility] Last Admin: 03/22/21 18:07 Dose: 40 mg Documented by: MARVA Hydrochlorothiazide (Hydrochlorothiazide 25 Mg Tablet) 25 mg PO DAILY [facility]; Protocol Last Admin: 03/23/21 10:13 Dose: 25 mg Documented by: ADRI Losartan Potassium (Losartan Potassium 50 Mg Tablet) 100 mg PO DAILY [facility]; Protocol Last Admin: 03/23/21 10:13 Dose: 100 mg Documented by: ADRI Pharmacy Consult (Consult Rx Perform Med Rec) 1 each MISCELLANE ONCE PRN PRN Reason: Consult order Sodium Chloride (0.9 % Sodium Chloride Flush 3 Ml Syringe) 3 ml IVFLUSH QSHIFT [facility] Last Admin: 03/23/21 10:12 Dose: 3 ml Documented by: ADRI Labs CBC & Chem 7: 03/23/21 06:24 03/23/21 06:24 Labs: Laboratory Results - last 24 hr 03/23/21 03/23/21 06:24 06:24 MCV 89.2 MCH 29.8 MCHC 33.4 RDW 12.4 Plt Count 344 D MPV 10.0 Absolute Nucleated RBC 0.000 Nucleated RBC % (auto) 0.0 Anion Gap 10 L Estim Creat Clear Calc 66.8 Estimated GFR > 60 Fasting Glucose 151 H Calcium 9.1 D C-Reactive Protein 1.52 H Assessment and Plan (1) Acute respiratory failure with hypoxia: Status: Acute (2) COVID-19: Status: Acute Assessment and Plan: 71-year-old female with past medical history of hypertension and hyperlipidemia, who presented to the hospital with shortness of breath found to be positive for COVID-19. Patient is not vaccinated. acute hypoxic respiratory failure secondary to COVID pneumonia weaned to 3L today dexamethasone d6 remdesivir finished 5 days wean O2 as tolerated monitor resp status hypertension stable ?losartan/HCTZ hyperlipidemia cont?Lipitor ?DVT prophylaxis? Lovenox Quality Stroke Does the patient have a stroke diagnosis?: No VTE Prior VTE?: No VTE Risk Level:: Medical - moderate - high VTE Device Contraindication: Treatment Not Indicated VTE Drug Contraindication: N/A - Med Ordered
[2021-03-23 15:36] VITALS: BP 97/53; PULSE 65; RESP 18; TEMP 37.1; O2SAT 94
[2021-03-23] MEDS: Enoxaparin Sodium 40 MG/0.4 ML SYRINGE SUBCUT (16:58)
[2021-03-23 19:24] VITALS: BP 102/67; PULSE 75; RESP 18; TEMP 37.1; O2SAT 94
[2021-03-23 23:51] VITALS: BP 102/59; PULSE 56; RESP 15; TEMP 36.2; O2SAT 93
[2021-03-24] MEDS: 0.9 % Sodium Chloride Flush 3 ML SYRINGE IVFLUSH ×2 (03:41→10:15)
[2021-03-24 03:50] VITALS: PULSE 49
[2021-03-24 07:07] LABS: Anion Gap 12 (12-20); Blood Urea Nitrogen 17 mg/dL (9-16); Calcium 9.1 mg/dL (8.4-10.2); Carbon Dioxide 28 mmol/L (22-29); Chloride 100 mmol/L (96-108); Creatinine Clr Calc Pharmacy 59.9; Estimated Glomerular Filt Rate > 60; Glucose Random 199 mg/dL (60-115); Potassium 4.1 mmol/L (3.3-5.1); Sodium 136 mmol/L (135-145)
[2021-03-24 07:51] VITALS: BP 134/74; PULSE 51; RESP 15; TEMP 36.1; O2SAT 94
[2021-03-24 09:13] VITALS: BP 134/74; PULSE 51; O2SAT 94
[2021-03-24 09:16] VITALS: PULSE 51; PULSE 60; O2SAT 90; O2SAT 92
[2021-03-24] MEDS: dexAMETHasone sod phosphate 4 MG/ML VIAL 6 MG IVPUSH (10:15)
[2021-03-24] MEDS: Atorvastatin Calcium 20 MG TABLET PO (10:15)
[2021-03-24] MEDS: hydroCHLOROthiazide 25 MG TABLET PO (10:15)
--- NOTE | 2021-03-24 10:19 | W.MHC.F2F ---
Service Date Service Date: 03/24/21 Encounter Date of encounter: 03/24/21 Reasons for Services Signs and symptoms assessed: Post COVID physical deconditioning Reason for physical therapy: home safety and mobility and therapeutic exercises Homebound: Leaving the home is medically contraindicated at this time without the asist of a device and/or another person due th the listed conditions above and below. Reason homebound: unsteady gait / fall risk Certification: Based on the above findings, I certify that this patient is confined to the home and needs intermittent care home care, physical therapy and/or speech therapy, or continues to need occupational therapy. The patient is under my care, and I have initiated the establishment of the plan of care. The patient will be followed by a physician who will periodically review the plan of care.
--- NOTE | 2021-03-24 10:20 | P.DS_ITS ---
DS: Providers Provider Date of Service: 03/24/21 Date of admission: 03/18/21 18:27 Primary care physician: Patricia Colunga MD DS: Diagnosis Discharge Diagnosis (1) Acute respiratory failure with hypoxia: Status: Acute (2) COVID-19: Status: Acute DS: Summary Hospital Course Hospital Course: Admission note HPI ?71-year-old female presented with 2 days of shortness of breath.? Patient is unvaccinated.? She reports that 2 days ago she started to feel fatigue and difficulty breathing, decreased appetite.? Symptoms got progressively worse so she came to the ED today.? She has no known COVID exposures.? In ED tested positive for COVID, was found to be hypoxic, 86% on room air, cxr with bilateral opacities. Hospital course The patient was admitted to the hospital for treatment of COVID-19 infection with associated hypoxia treated with IV steroids, IV remdesivir and oxygen supplement. She was weaned down during the hospital stay to 3 L of oxygen. Evaluated by respiratory therapist for home oxygen requirement as she required 2 L at rest and 3 with ambulation. Evaluated by physical therapy team who recommended home PT. To be discharged home to finish 3 more days of dexamethasone. To do physical therapy at home. Time Spent with Patient Time attestation: Total time spent providing and/or coordinating discharge services: Discharge coordination time: Greater than 30 minutes Quality: Stroke Does the patient have a stroke diagnosis?: No Physical Exam Verdana 4l Vital Signs: Verdana 4d Verdana 4d Vital Signs: Verdana 4d Verdana 4Bd Last Vital Signs Verdana 4d [facility] New 4d [facility] New 4d Temp 97.0 F 03/24/21 07:51 [facility] New 4d Pulse 51 03/24/21 09:13 [facility] New 4d Resp 15 03/24/21 07:51 BP 134/74 03/24/21 09:13 Pulse Ox 94 03/24/21 09:13 BMI result Body Mass Index 28.9 Const: Other: Constitutional : Alert, oriented, not in distress Neck : Normal inspection, Supple Cardiovascular : No JVP, no lower extremity edema Respiratory : Chest wall moving bilaterally, not in distress, nasal cannula Gastrointestinal: soft, lax, Normal bowel sounds, Non tender Skin : Warm, Dry Neurological : Alert & oriented x3, No focal deficit DS: Data Data Completed and Pending Labs on day of discharge: Laboratory Results - last 24 hr 03/24/21 06:25 Sodium 136 Potassium 4.1 Chloride 100 Carbon Dioxide 28 Anion Gap 12 BUN 17 H Creatinine 0.88 Estim Creat Clear Calc 59.9 Estimated GFR > 60 Random Glucose 199 H Calcium 9.1 Discharge Plan Discharge Patient Disposition: Home Health Service Discharge Diagnosis: COVID-19 infection Hypoxia Referrals: Ptaricia Colunga MD [Primary Care Provider] - 1 Week Discharge Medications: New dexamethasone 6 mg tablet 6 mg PO DAILY Qty: 3 0RF Continued atorvastatin 20 mg tablet 1 tab PO DAILY 0RF losartan-hydrochlorothiazide 100-25 mg tablet 1 tab PO DAILY 0RF Discharge Orders: Discharge Order (Routine); Ordered 03/24/21 Ordered By: Julia Ambrosio Diet: advance to usual diet Activity on Discharge: As tolerated Stand Alone Forms: Patient Portal Discharge page Care Plan Goals: Read below Health Concerns: Read below Plan of Treatment: Read below Assessment: You were admitted to the hospital for evaluation of difficulty breathing. Found to have COVID-19 infection treated with IV steroids and oxygen supplement with good response over the course of hospital stay. You were evaluated by respiratory therapist who found that you still need oxygen at time of discharge. Continue dexamethasone for the next 3 days To use oxygen at home, wean down as tolerated To follow-up with your PCP within 2 weeks
[2021-03-24 12:00] VITALS: BP 136/74; PULSE 66; RESP 16; TEMP 36.6; O2SAT 94
--- NOTE | 2021-03-24 15:39 | MHC.CM.PN ---
Discharge today to home with new oxygen. Maura is provider. [facility] will provide homecare services. Family transported the patient home. Contact info update requested via TASK thru [employer]scripts.
== END 2021-03-24 14:30 | disposition home health service (06) | DRG 177 ==
LOC: HO.ED 17:37 → HO.EDOVER 18:31 → HO.IMC 19:36
PROVIDERS: Admitting Provider Internal Medicine; Emergency Provider Emergency Medicine; PCP Internal Medicine; Visit Provider Student in an Organized Health Care Education/Training Program
DX: U07.1 COVID-19 (principal); J12.82 Pneumonia due to coronavirus disease 2019; J96.01 Acute respiratory failure with hypoxia; I10 Essential (primary) hypertension; E78.5 Hyperlipidemia, unspecified; Z87.891 Personal history of nicotine dependence; Z79.899 Other long term (current) drug therapy
CPT/HCPCS: 36415; 71045; 80048; 80076; 83605; 83880; 84484; 85025; 85027; 85610; 86140; 87040; 87635; 93005; 96361; 96374; 97162; 99285; J0248; J1100; J1650

== ENCOUNTER 2021-04-20 08:09 | Outpatient (REF) | payer MEDICARE, OTHER, SELFPAY ==
[2021-04-20 10:20] LABS: Alanine Aminotransferase 17 U/L (0-31); Alkaline Phosphatase 73 U/L (39-117); Anion Gap 11 (12-20); Aspartate Amino Transferase 17 U/L (5-31); Bilirubin Total 0.7 mg/dL (0.0-1.0); Blood Urea Nitrogen 12 mg/dL (9-16); Calcium 9.4 mg/dL (8.4-10.2); Carbon Dioxide 31 mmol/L (22-29); Chloride 103 mmol/L (96-108); Cholesterol 193 mg/dL; Estimated Glomerular Filt Rate > 60; Glucose Random 104 mg/dL (60-115); HDL Cholesterol 37 mg/dL; LDL Cholesterol Calculated 130 mg/dl; Potassium 4.1 mmol/L (3.3-5.1); Sodium 141 mmol/L (135-145); Total Protein 7.2 g/dL (6.5-8.0); Triglycerides 133 mg/dL
== END 2021-04-20 08:10 | disposition home or self-care (01) ==
LOC: HO.LAB 08:09
PROVIDERS: PCP Internal Medicine; Visit Provider Internal Medicine
DX: N20.0 Calculus of kidney (principal); E78.00 Pure hypercholesterolemia, unspecified; J01.90 Acute sinusitis, unspecified; I10 Essential (primary) hypertension; E78.5 Hyperlipidemia, unspecified
CPT/HCPCS: 36415; 80053; 80061; 99202

== ENCOUNTER 2021-05-20 09:59 | Outpatient (REF) | payer MEDICARE, OTHER, SELFPAY ==
--- NOTE | ~2021-05-20 | US_ITS ---
EXAMINATION: US RETROPERITONEAL LIMITED (RENAL ONLY) CLINICAL INFORMATION: Calculus of kidney. COMPARISON: CT abdomen and pelvis 10/28/2018. Renal ultrasound 07/19/2018 and 11/14/2017. X-ray abdomen KUB 10/11/2017. TECHNIQUE: Real-time imaging of the kidneys. FINDINGS: RIGHT KIDNEY: 9.5 x 4.4 x 4.7 cm (SAG x AP x TRV). The kidney is normal in size, contour, and echogenicity. Renal cortical thickness is normal. No calculi or focal parenchymal lesions. No hydronephrosis. LEFT KIDNEY: 11.0 x 4.6 x 5.2 cm (SAG x AP x TRV). The kidney is normal in size, contour, and echogenicity. Renal cortical thickness is normal. 3 mm nonobstructing mid pole calculus. No hydronephrosis. US/US renal BI IMPRESSION: 3 mm nonobstructing calculus of the left kidney. No hydronephrosis.
== END 2021-05-20 10:00 | disposition home or self-care (01) ==
LOC: HO.US 09:59
DX: N20.0 Calculus of kidney (principal)
CPT/HCPCS: 76775

== ENCOUNTER → 2021-06-04 14:15 | Outpatient (BNVA) | payer MEDICARE, OTHER, SELFPAY | PROVIDERS: PCP Internal Medicine | DX: N20.0 Calculus of kidney (principal) | CPT/HCPCS: 99212 ==

== ENCOUNTER 2021-12-04 09:00 | Outpatient (REF) | payer MEDICARE, OTHER, SELFPAY ==
--- NOTE | ~2021-12-04 | MM_ITS ---
EXAMINATION: MM SCREENING DIGITAL BREAST TOMOSYNTHESIS, BILATERAL CLINICAL INFORMATION: Screening. Asymptomatic. The lifetime risk of breast cancer based on the Tyrer-Cuzick Model is 4%. COMPARISON: Mammography: 12/15/2017, 11/21/2017, 12/31/2009; ultrasound right breast 12/15/2017. TECHNIQUE: Digital breast tomosynthesis is performed in both the craniocaudal and mediolateral oblique views along with computer-aided detection (CAD). Synthesized 2D images are generated from the tomosynthesis. FINDINGS: There are scattered areas of fibroglandular density (ACR BI-RADS breast composition Category b). There are no significant masses, abnormal calcifications, or other abnormalities. Parenchymal pattern is similar to prior studies. There is no developing density or architectural abnormality. The axilla and skin contours are unremarkable. No significant changes. MM/MM tomosynthesis screening BI IMPRESSION: No mammographic evidence of malignancy. ASSESSMENT: BI-RADS 1: Negative RECOMMENDATION: Routine annual mammography screening. This patient's information was entered into a reminder system with a target due date for their next mammogram.
== END 2021-12-04 09:01 | disposition home or self-care (01) ==
LOC: HO.MAMMO 09:00
PROVIDERS: Visit Provider Internal Medicine
DX: Z12.31 Encounter for screening mammogram for malignant neoplasm of breast (principal)
CPT/HCPCS: 77063; 77067

== ENCOUNTER 2021-12-20 11:19 | Outpatient (REF) | payer MEDICARE, OTHER, SELFPAY ==
--- NOTE | ~2021-12-20 | US_ITS ---
EXAMINATION: US RETROPERITONEAL LIMITED (RENAL ONLY) CLINICAL INFORMATION: Calculus of kidney. COMPARISON: Ultrasound retroperitoneal limited (renal only) 05/20/2021 and 07/19/2018. CT abdomen and pelvis with contrast 10/28/2018. X-ray abdomen KUB 10/11/2017. TECHNIQUE: Real-time imaging of the kidneys. FINDINGS: RIGHT KIDNEY: 10.9 x 4.4 x 4.9 cm (SAG x AP x TRV). The kidney is normal in size, contour, and echogenicity. Renal cortical thickness is normal. No calculi or focal parenchymal lesions. No hydronephrosis. LEFT KIDNEY: 11.2 x 4.6 x 5.1 cm (SAG x AP x TRV). The kidney is normal in size, contour, and echogenicity. Renal cortical thickness is normal. There is a 3 mm stone in the mid to upper pole. No focal parenchymal lesions or hydronephrosis. US/US renal BI IMPRESSION: Small left renal stone.
== END 2021-12-20 11:20 | disposition home or self-care (01) ==
LOC: HO.HMGCX 11:19
PROVIDERS: PCP Internal Medicine
DX: N20.0 Calculus of kidney (principal)
CPT/HCPCS: 76775

== ENCOUNTER → 2021-12-30 09:12 | Outpatient (BNVA) | payer MEDICARE, OTHER, SELFPAY | PROVIDERS: PCP Internal Medicine; Visit Provider Urology | DX: N20.0 Calculus of kidney (principal) | CPT/HCPCS: 99212 ==

== ENCOUNTER 2022-09-27 09:33 | Emergency (ER) | payer OTHER, SELFPAY ==
[2022-09-27 09:48] VITALS: BP 160/76; PULSE 57; RESP 16; TEMP 36; O2SAT 96; BMI 29.3
--- NOTE | 2022-09-27 09:59 | ED.GENADULT ---
HPI - General Adult General Chief complaint: General Medical Stated complaint: HBP Time Seen by Provider: 09/27/22 09:59 Source: patient Mode of arrival: ambulatory Limitations: no limitations History of Present Illness HPI narrative: 72 y/o F with past medical history of hypertension and hyperlipidemia presents with high home blood pressure reading. She is traveling from [place], where she left her blood pressure medication. She will be here for 2 weeks. She reported that she takes her blood pressure at home which was slowly increasing for the past 2 days. She takes Losartan 100mg once a day and her last dose was 3 days ago. She denies any chest pain, SOB, headaches or vision changes. She does report some anxiety. Related Data Home Medications Medication Instructions Recorded Confirmed atorvastatin 20 mg tablet 1 tab PO DAILY 03/18/21 12/30/21 losartan 100 1 tab PO DAILY 03/18/21 12/30/21 mg-hydrochlorothiazide 25 mg tablet loratadine 10 mg tablet 10 mg PO DAILY 04/20/21 12/30/21 sertraline 50 mg tablet 50 mg PO QAM 04/20/21 12/30/21 atorvastatin 40 mg tablet 40 mg PO BEDTIME 06/04/21 12/30/21 valsartan 320 1 tab PO DAILY 06/04/21 12/30/21 mg-hydrochlorothiazide 25 mg tablet Previous Rx's Medication Instructions Recorded dexamethasone 6 mg tablet 6 mg PO DAILY #3 tabs 03/24/21 pyridoxine (vitamin B6) 50 mg 50 mg PO DAILY #30 caps 06/04/21 capsule atorvastatin 40 mg tablet 40 mg PO BEDTIME #30 tabs 09/27/22 losartan 100 1 tab PO DAILY #30 tabs 09/27/22 mg-hydrochlorothiazide 25 mg tablet Allergies Allergy/AdvReac Type Severity Reaction Status Date / Time No Known Allergies Allergy Verified 12/30/21 09:24 [No Known Allergies*] Review of Systems Review of Systems: General: No fever, no chills Ophthalmology: No vision changes, no discharge ENT: No sore throat, no ear pain Cardiovascular: No chest pain, no peripheral edema, no shortness of breath Respiratory: No dyspnea, no sputum production, no cough Muscle skeletal: No malaise, no back pain, no neck pain, no extremity pain GI: No abdominal pain, no nausea vomiting, no diarrhea Psychiatric: positive anxiety Skin: No rash Neuro: No headache Immunology: No immunocompromised Hematology: No bleeding, no bruising PMFSH Past Medical History Attestation statement: The following information was validated with the patient. Medical History HTN (hypertension) Hypercholesteremia Hyperlipidemia Hypertension Renal stones UTI (urinary tract infection) Varicose veins of bilateral lower extremities with other complications Surgical History H/O section Family History Family History Mother HTN (hypertension) Father HTN (hypertension) Social History Social History Household Members: Family Housing: House Do you presently have visiting nurse or other home services: No Alcohol intake: never Patient Tobacco Use Status: Former Tobacco user Quit Date: remote Advance Directives: No Advance Directives Information Provided: Yes service: No Current occupational status: retired Physical Exam ED Vital Signs: Vital Signs - 24 hr 09/27/22 09:48 Temperature 96.8 F Pulse Rate 57 Respiratory Rate 16 Blood Pressure 160/76 H Pulse Oximetry 96 Oxygen Delivery Method Room Air BMI result Body Mass Index 29.3 General appearance: Awake, alert, cooperative, in no acute distress Skin: Warm, dry, no rash Eyes: PERRL, EOMI, no icterus ENT: Oropharynx normal, uvula midline Neck: Soft supple full range of motion Pulmonary: Breath sounds clear to auscultation bilaterally, no accessory muscle use Cardiovascular: Regular rate and rhythm, no murmurs and rubs Abdomen: Soft nontender, no rebound or guarding, positive bowel sounds Extremities: No deformity, nontender, no peripheral edema noted, 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 hypertensive urgency Hypertensive emergency Medication refill 72-year-old female with longstanding history of hypertension hypercholesterolemia who lost her medications as she is visiting from [place]. Patient denies chest pain shortness of breath fever chills otherwise well-appearing EKG is unremarkable at this time will refill medication at this time. Patient instructed return if symptoms worsen. Medical Decision Making Medical Decision Making MDM Narrative: 72 y/o F with PMHx of HTN and HLD presents with high home blood pressure readings. She reports that she left her BP meds at her home in [place] and has not taken a dose since monday. She takes her BP daily and noticed that her readings were increasing over the past two days. She has no symptoms Discharge Plan Discharge Clinical Impression: Hypertension, Medication refill Patient Disposition: Home, Self-Care Instructions: Chronic Hypertension (DC) Additional Instructions: Continue current medications as directed return if symptoms worsen call your PCP for follow-up Prescriptions: New atorvastatin 40 mg tablet 40 mg PO BEDTIME Qty: 30 0RF losartan-hydrochlorothiazide 100-25 mg tablet 1 tab PO DAILY Qty: 30 0RF No Action atorvastatin 20 mg tablet 1 tab PO DAILY losartan-hydrochlorothiazide 100-25 mg tablet 1 tab PO DAILY dexamethasone 6 mg tablet 6 mg PO DAILY Qty: 3 0RF loratadine 10 mg tablet 10 mg PO DAILY sertraline 50 mg tablet 50 mg PO QAM valsartan-hydrochlorothiazide 320-25 mg tablet 1 tab PO DAILY atorvastatin 40 mg tablet 40 mg PO BEDTIME pyridoxine (vitamin B6) 50 mg capsule 50 mg PO DAILY Qty: 30 0RF
--- NOTE | 2022-09-27 10:10 | ECG_ITS ---
Test Reason : htn Blood Pressure : / mmHG Vent. Rate : 057 BPM Atrial Rate : 057 BPM P-R Int : 154 ms QRS Dur : 094 ms QT Int : 396 ms P-R-T Axes : 030 003 081 degrees QTc Int : 385 ms Sinus bradycardia Minimal voltage criteria for LVH, may be normal variant ( R in aVL ) Nonspecific ST and T wave abnormality Abnormal ECG When compared to the previous EKG of 18 mar 2021, decrease in ventricular rate Referred By: Rudy Wilson Electronically Signed By:SHAWN RAMOS
--- NOTE | 2022-09-27 10:21 | MHC.EDTECH ---
EKG completed and signed by attending
== END 2022-09-27 10:56 | disposition home or self-care (01) ==
PROVIDERS: Emergency Provider Emergency Medicine; PCP Internal Medicine
DX: Z76.0 Encounter for issue of repeat prescription (principal); I10 Essential (primary) hypertension; E78.5 Hyperlipidemia, unspecified; Z79.899 Other long term (current) drug therapy; Z87.891 Personal history of nicotine dependence
CPT/HCPCS: 93005; 99283; 99284

== ENCOUNTER → 2022-09-27 10:10 | Outpatient (BNV) | payer OTHER, SELFPAY | PROVIDERS: Emergency Provider Emergency Medicine; PCP Internal Medicine; Visit Provider Internal Medicine | DX: R00.1 Bradycardia, unspecified (principal); R94.31 Abnormal electrocardiogram [ECG] [EKG] | CPT/HCPCS: 93010 ==

== ENCOUNTER 2023-08-26 11:09 | Emergency (ER) | payer OTHER, SELFPAY ==
--- NOTE | ~2023-08-26 | CT_ITS ---
EXAMINATION: CT ANGIOGRAM OF THE HEAD CT ANGIOGRAM OF THE NECK CLINICAL INFORMATION: Right-sided body pain and hypertension. COMPARISON: There are no recent prior studies available for comparison. TECHNIQUE: A noncontrast axial CT scan of the head was obtained. Test bolus series followed by intravenous administration 70 mL of Omnipaque 350. Helical imaging was performed in the axial plane from the mediastinum to the skull vertex. The degree of stenosis is based off NASCET criteria. The data was processed at the medical lab technologist workstation for generation of MIP images. Three-dimensional volume rendered reformatted images were also generated at an offline 3-D workstation. This CT examination was performed using dose optimization techniques as appropriate, variously including the following: *Automated exposure control *Adjustment of mA and/or kV according to patient size (this includes techniques or standardized protocols for targeted exams where dose is matched to indication/reason for exam; i.e. extremities or head) *Use of iterative reconstruction technique DLP: 2198 mGy-cm. FINDINGS: CT Head: There is no evidence of acute intracranial hemorrhage or territorial infarction. No abnormal mass-effect or midline shift is seen. Sprague to white matter differentiation is well preserved. No extra-axial fluid collections are identified. There is no abnormal enhancement. There is mild commensurate prominence of the ventricles and sulci consistent with diffuse volume loss. There are a few scattered foci of hyperintense T2 and FLAIR signal in the periventricular and subcortical white matter, consistent with mild chronic microvascular ischemic changes. There are calcifications in the left basal ganglia. There are no acute osseous abnormalities. There is hyperostosis frontalis interna. The soft tissues are unremarkable. The mastoid air cells and the paranasal sinuses are well-aerated. CTA Neck: Images are severely degraded by patient motion artifact at the level of the foramen magnum and C1. There is a classic configuration of the arch of the aorta. The great vessels of the neck are widely patent. The subclavian arteries appear normal bilaterally. The common carotid arteries have normal caliber. There are mild atheromatous calcifications at the left carotid bifurcation, without significant stenosis. The proximal cervical internal carotid arteries appear normal. Distally, evaluation is markedly suboptimal bilaterally due to patient motion artifact. The origin of the right vertebral artery appears normal. The left vertebral artery origin is suboptimally visualized due to hardening artifact from reflux venous contrast. The V2 segments of the vertebral arteries bilaterally are patent. The left proximal artery is dominant. Evaluation of the V3 segments is bilaterally degraded by artifact. Nonvascular: There is a 3 mm nodule in the left upper lobe laterally there are emphysematous changes in the lungs bilaterally. The thyroid gland appears normal. There is no cervical lymphadenopathy. There are spondylitic changes in the lower cervical spine. There are no acute fractures or subluxations. CTA Head: The petrous segments of the internal carotid arteries are suboptimally visualized. The cavernous internal carotid arteries appear patent; there are mild atheromatous calcifications. 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 The right middle and bilateral anterior cerebral arteries demonstrate normal caliber with no evidence of focal stenosis, aneurysm or vascular malformation. There is normal arborization of the middle cerebral artery branches. The anterior communicating artery is normal. Evaluation of the proximal intradural vertebral arteries is suboptimal due to motion artifact, but the vessels appear patent. The left vertebral artery is dominant. The basilar artery is patent. The P1 segment of left posterior cerebral artery is tortuous. The posterior cerebral arteries are patent bilaterally. The venous sinuses opacify normally. CT/CT angio head neck IMPRESSION: CT Head and Neck: 1. There are no acute bleeds or territorial infarcts. There are no masses or areas of abnormal enhancement. 2. There is diffuse volume loss and there are chronic microvascular ischemic changes. 3. There is a 3 mm nodule in the left upper lobe laterally. According to the UPDATED 2017 Fleischner Society recommendations, the advised follow-up imaging for nodules <6mm in the upper lobes is not necessarily required in low-risk patients. In high-risk patients with a nodule in the upper lobe and/or demonstrating suspicious morphology, an optional CT follow-up at 12 months may be obtained. If stable at 12 months, no further follow-up is recommended. CTA Head and Neck: 1. The study is severely degraded by patient motion artifact at the level of the foramen magnum and C1 and evaluation of the distal cervical internal carotid arteries and proximal vertebral arteries is suboptimal due to motion artifact. 2. There are mild atheromatous calcifications at the left carotid bifurcation, without significant stenosis. 4. Evaluation of the proximal intradural vertebral arteries is suboptimal due to motion artifact. 5. 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 This critical result was discussed with SHANNON Reis by telephone on 08/26/2023 at 2:10 PM and it was ascertained that the content and urgency of the report was understood at the time of direct communication.
[2023-08-26 11:25] VITALS: BP 134/78; PULSE 68; RESP 18; TEMP 36.6; O2SAT 98; BMI 29.3
--- NOTE | 2023-08-26 11:27 | ED_ITS ---
HPI - General Adult General Chief complaint: General Medical Stated complaint: high blood pressure Time Seen by Provider: 08/26/23 11:56 Source: patient and RN notes reviewed Mode of arrival: ambulatory Limitations: no limitations History of Present Illness ED Provider: Arleth Ramos PA-C HPI narrative: This is a 73-year-old female, with a history of hypertension, who presents emergency department with complaints of high blood pressure and right-sided body pain. Patient states that this morning at around 7:00 a.m. she had sensation as though her right side of her body was painful and sore. She states that she took her blood pressure this morning and it was elevated in the 190s systolically. She states that she is currently visiting from [place] and has been without her hypertensive medications for the last 4 days. She endorses slight headache, neck pain as well as right arm pain, right leg pain. She states that it is very sore, denies severe pain. Denies blurred vision or double vision. Denies any chest pain or shortness of breath. Denies any other complaints or concerns at this time. MD complaint: Right-sided body pain Onset (ago): hour(s) Relieving factors: none Exacerbating factors: none Associated symptoms: denies other symptoms Treatments prior to arrival: none Related Data Home Medications ?Medication ?Instructions ?Recorded ?Confirmed loratadine 10 mg tablet 10 mg PO DAILY 04/20/21 12/30/21 sertraline 50 mg tablet 50 mg PO QAM 04/20/21 12/30/21 valsartan 320 1 tab PO DAILY 06/04/21 12/30/21 mg-hydrochlorothiazide 25 mg tablet Previous Rx's ?Medication ?Instructions ?Recorded dexamethasone 6 mg tablet 6 mg PO DAILY #3 tabs 03/24/21 pyridoxine (vitamin B6) 50 mg 50 mg PO DAILY #30 caps 06/04/21 capsule atorvastatin 40 mg tablet 40 mg PO BEDTIME #30 tabs 09/27/22 losartan 100 1 tab PO DAILY #30 tabs 09/27/22 mg-hydrochlorothiazide 25 mg tablet lisinopril 40 mg tablet 40 mg PO DAILY #30 tabs 08/26/23 Allergies Allergy/AdvReac Type Severity Reaction Status Date / Time iohexol [From Omnipaque] Allergy Intermediate Itching Verified 08/26/23 13:47 Review of Systems 2 Review of Systems: Yes all other systems are reviewed and are negative Constitutional: Constitutional: Reports as per HPI [facility] Past Medical History Medical History HTN (hypertension) Hypercholesteremia Hyperlipidemia Hypertension Renal stones UTI (urinary tract infection) Varicose veins of bilateral lower extremities with other complications Surgical History H/O section Family History Family History Mother HTN (hypertension) Father HTN (hypertension) Social History Social History Household Members: Family Housing: House Do you presently have visiting nurse or other home services: No Alcohol intake: never Patient Tobacco Use Status: Former Tobacco user Advance Directives: No Advance Directives Information Provided: Yes Do you have a plan to hurt others: No Plan service: No Current occupational status: retired Physical Exam ED Vital Signs: Vital Signs - 24 hr 08/26/23 11:25 08/26/23 15:30 08/26/23 16:48 Temperature 97.9 F 97.9 F 97.9 F Pulse Rate 68 58 58 Respiratory Rate 18 16 16 Blood Pressure 134/78 158/75 H 158/75 H Pulse Oximetry 98 97 97 Oxygen Delivery Method Room Air Room Air Room Air BMI result Body Mass Index 29.3 Const General: cooperative, comfortable and no acute distress Orientation/consciousness: patient oriented x3 Limitations: no limitations HENMT Head: Yes normal to inspection, Yes normocephalic and Yes atraumatic Ears: hearing grossly normal bilaterally General nose exam: Normal external nose present Face and sinus: Yes normal facial exam Mouth: Normal oral and palatal mucosa present, oropharynx normal and moist mucous membranes Throat: Yes posterior oropharynx normal Eyes General: appearance normal, both eyes and all related structures Eyelids: Yes eyelids normal Conjunctivae: conjunctivae normal Sclerae: sclerae normal Pupils: Equal, round and reactive pupils present EOM: EOMs intact bilaterally Neck Neck: Yes normal visual inspection, Yes full ROM and Yes no lymphadenopathy Lymphatic: no lymphadenopathy noted Chest Chest palpation & inspection: normal inspection of the chest Resp Effort & Inspection: normal respiratory effort and able to speak in complete sentences Auscultation: clear to auscultation bilaterally, no crackles, no rales, no rhonchi and no wheezes Cardio Rate: regular rate Rhythm: regular rhythm Heart sounds: S1 normal heart sound present and S2 normal heart sound present GI Inspection: Yes normal to inspection Skin General skin exam: no rashes or lesions noted Trauma: no lacerations or abrasions Wounds: no wounds Neuro General: patient oriented x3 and moves all extremities Cranial nerves: Yes CN's II-XII intact bilaterally and Yes Equal, round and reactive pupils present Cognition (Neuro): normal cognition Gait exam (Neuro): Normal gait present Motor exam (neuro): 5/5 motor strength present throughout and Pronator motor function not present Extrem General: Yes normal to inspection Right upper extremity: normal to inspection Left upper extremity: normal to inspection Right lower extremity: normal to inspection Left lower extremity: normal to inspection NIH Stroke Scale Internal: Initial- Upon Arrival Level of Consciousness: Alert Level of Consciousness Questions: Answers both questions correctly Level of Consciousness Commands: Performs both tasks correctly Best Gaze: Normal Visual: No visual loss Facial Palsy: Normal Motor Arm (Right): No drift Motor Arm (Left): No drift Motor Leg (Right): No drift Motor Leg (Left): No drift Limb Ataxia: Absent Sensory: Normal Best Language: No aphasia Dysarthia: Normal Extinction and Inattention: No abnormality Score: 0 Course Course Course Narrative: This is a Rapid Medical Examination (RME) performed by Mg Morin PA-C in triage. Full HPI, ROS, assessment and treatment plan per primary provider in the Main ED. 73 yo female with hx of hypertension presents to the ED today for evaluation of elevated blood pressure. Reports BP reading of 190/90 this morning. takes lisinopril 40mg daily however admits to being out of her medicaitons x3-4 days now. she has been in [place] x1 year and is unable to get these prescriptions filled. she reports right sided headache and neck pain however states she believes she pulled a muscle when sleeping. denies dizziness, vision changes, chest pain. exam is nonfocal. PERRLA. rrr. BP wnl in triage. Plan: basic labs, ekg Reevaluation(s) Reevaluation #1: DR. Coronel: I was called to the CT scan table patient possibly had reaction to IV contrast, patient feel throat itching and tingling around her mouth, no difficulty breathing, speech is normal, no stridor. Benadryl 50 mg IV, Solu-Medrol 125 mg IV, Pepcid 20 mg IV was ordered. Will reassess. Time: 13:29 Reevaluation #2: Patient had an allergic reaction after receiving the IV contrast. This was added to her allergy meds. Lungs clear to auscultation, airway widely patent. Patient reassessed, no longer having throat itchiness or tingling around her mouth. Time: 13:59 Reevaluation #3: Received call in regards to CTA report. 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 Discussed case with my attending, who recommends reaching out to Neurology for further recommendations. Patient remains comfortable, she has no right-sided body pain as this has since resolved. Time: 14:46 Additional Reevaluation(s): Spoke to Dr. Carson, given incidental finding of 3mm anneurysm, recommends outpatient follow up with PCP. Pt asymptomatic at this time. Will d/c with her BP medications that she did not [place] to the [place] during this trip. Given strict return precautions and she will follow-up with her PCP in [place]. Patient stable discharge. She is feeling well, no current complaints patient stable for discharge. She will be drinking by daughter. Medications Administered Discontinued Medications Generic Name Dose Route Start Last Admin Trade Name Freq PRN Reason Stop Dose Admin Diphenhydramine HCl 50 mg 08/26/23 13:28 08/26/23 13:35 Diphenhydramine Hcl 50 Mg/Ml Vial IVPUSH 08/26/23 13:29 50 mg ONCE ONE Administration Famotidine 20 mg 08/26/23 13:28 08/26/23 13:35 Famotidine/Pf 20 Mg/2 Ml Vial IVPUSH 08/26/23 13:29 20 mg ONCE ONE Administration Iohexol 100 ml 08/26/23 13:24 08/26/23 13:24 Iohexol 350 Mg/Ml 100 Ml Infus..Btl IV 08/26/23 13:25 70 ml ONCE ONE Administration Methylprednisolone Sodium Succinate 125 mg 08/26/23 13:28 08/26/23 13:35 Methylprednisolone Sod Succ 125 Mg/2 Ml Vial IVPUSH 08/26/23 13:29 125 mg ONCE ONE Administration Medical Decision Making Medical Decision Making [facility] Narrative: This is a 73-year-old female who presents emergency department with complaints of right-sided body discomfort, and elevated blood pressure. On arrival, blood pressure 134/78. She is alert and oriented x4. No neurologic focal deficits on examination. Patient states she has been without her medications for 4 days. She states that she awoke with symptoms including right-sided body pain. Differential diagnoses include TIA, CVA, electrolyte derangement, hypertensive urgency, emergency. No recent head injury Plan: Labs, EKG, CTA head and neck Differential Diagnosis Differential Diagnoses: The differential diagnosis associated with the presentation includes See above Admission/Observation Consideration of admission/observation: Escalation of care including admission/observation considered Escalation of care including admission/observation considered however given workup today not warranted at this time. 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 Carson - neurologist Lab Data [facility] Lab Attestation statement: I reviewed the patient's lab results. No leukocytosis, stable H&H, chemistry within normal limits. 08/26/23 12:10 08/26/23 12:10 Labs: Lab Results 08/26/23 Range/Units 12:10 WBC 6.2 (4.8-10.8) X10*3/uL RBC 4.89 (4.20-5.50) X10*6/uL Hgb 14.8 (12.0-16.0) g/dl Hct 44.5 (37.0-47.0) % MCV 91.0 (80.0-98.0) fL MCH 30.3 (27.0-33.0) pg MCHC 33.3 (31.0-35.0) g/dl RDW 12.5 (11.0-16.0) % Plt Count 222 D (160-400) X10*3/uL MPV 9.9 (9.4-12.3) fL Immature Gran % (Auto) 0.2 (0.0-0.4) % Neut % (Auto) 54.6 (45-73) % Lymph % (Auto) 33.5 (20-40) % [place] % (Auto) 8.3 (2-11) % Eos % (Auto) 2.8 (0-4) % Baso % (Auto) 0.6 (0-2) % Lymph # (Auto) 2.1 (1.2-4.9) X10*3/uL [place] # (Auto) 0.5 (0.1-1.2) X10*3/uL Eos # (Auto) 0.2 (0.0-0.4) X10*3/uL Baso # (Auto) 0.0 (0.0-0.2) X10*3/uL Abs Immat Gran (auto) 0.01 (0.00-0.03) X10*3/uL Absolute Neuts (auto) 3.4 (2.0-8.3) x10*3/uL Absolute Nucleated RBC 0.000 (0.0-0.012) X10*3/uL Nucleated RBC % (auto) 0.0 (0.0-0.2) /100WBC Sodium 142 (135-145) mmol/L Potassium 3.5 (3.3-5.1) mmol/L Chloride 107 (96-108) mmol/L Carbon Dioxide 29 (22-29) mmol/L Anion Gap 10 L (12-20) BUN 11 (9-16) mg/dL Creatinine 0.75 (0.5-1.4) mg/dL Estim Creat Clear Calc 68.8 Estimated GFR > 60 Random Glucose 98 (60-115) mg/dL Calcium 9.2 (8.4-10.2) mg/dL Magnesium 2.1 (1.6-2.6) mg/dL Total Bilirubin 0.6 (0.0-1.0) mg/dL AST 18 (5-31) U/L ALT 18 (0-31) U/L Alkaline Phosphatase 91 (39-117) U/L Troponin I High Sens 2.7 (<3.5-17.0) ng/L Total Protein 7.2 (6.5-8.0) g/dL Albumin 4.3 (3.5-5.0) g/dL Lipase 25 (8-78) U/L Radiology Impression Discussion of test interpretation with radiology: I have reviewed the radiologist's reading. Radiologist Impression: EXAMINATION: CT ANGIOGRAM OF THE HEAD CT ANGIOGRAM OF THE NECK CLINICAL INFORMATION: Right-sided body pain and hypertension. COMPARISON: There are no recent prior studies available for comparison. TECHNIQUE: A noncontrast axial CT scan of the head was obtained. Test bolus series followed by intravenous administration 70 mL of Omnipaque 350. Helical imaging was performed in the axial plane from the mediastinum to the skull vertex. The degree of stenosis is based off NASCET criteria. The data was processed at the radioisotope technologist workstation for generation of MIP images. Three-dimensional volume rendered reformatted images were also generated at an offline 3-D workstation. This CT examination was performed using dose optimization techniques as appropriate, variously including the following: *Automated exposure control *Adjustment of mA and/or kV according to patient size (this includes techniques or standardized protocols for targeted exams where dose is matched to indication/reason for exam; i.e. extremities or head) *Use of iterative reconstruction technique DLP: 2198 mGy-cm. FINDINGS: CT Head: There is no evidence of acute intracranial hemorrhage or territorial infarction. No abnormal mass-effect or midline shift is seen. Sprague to white matter differentiation is well preserved. No extra-axial fluid collections are identified. There is no abnormal enhancement. There is mild commensurate prominence of the ventricles and sulci consistent with diffuse volume loss. There are a few scattered foci of hyperintense T2 and FLAIR signal in the periventricular and subcortical white matter, consistent with mild chronic microvascular ischemic changes. There are calcifications in the left basal ganglia. There are no acute osseous abnormalities. There is hyperostosis frontalis interna. The soft tissues are unremarkable. The mastoid air cells and the paranasal sinuses are well-aerated. CTA Neck: Images are severely degraded by patient motion artifact at the level of the foramen magnum and C1. There is a classic configuration of the arch of the aorta. The great vessels of the neck are widely patent. The subclavian arteries appear normal bilaterally. The common carotid arteries have normal caliber. There are mild atheromatous calcifications at the left carotid bifurcation, without significant stenosis. The proximal cervical internal carotid arteries appear normal. Distally, evaluation is markedly suboptimal bilaterally due to patient motion artifact. The origin of the right vertebral artery appears normal. The left vertebral artery origin is suboptimally visualized due to hardening artifact from reflux venous contrast. The V2 segments of the vertebral arteries bilaterally are patent. The left proximal artery is dominant. Evaluation of the V3 segments is bilaterally degraded by artifact. Nonvascular: There is a 3 mm nodule in the left upper lobe laterally there are emphysematous changes in the lungs bilaterally. The thyroid gland appears normal. There is no cervical lymphadenopathy. There are spondylitic changes in the lower cervical spine. There are no acute fractures or subluxations. CTA Head: The petrous segments of the internal carotid arteries are suboptimally visualized. The cavernous internal carotid arteries appear patent; there are mild atheromatous calcifications. 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 The right middle and bilateral anterior cerebral arteries demonstrate normal caliber with no evidence of focal stenosis, aneurysm or vascular malformation. There is normal arborization of the middle cerebral artery branches. The anterior communicating artery is normal. Evaluation of the proximal intradural vertebral arteries is suboptimal due to motion artifact, but the vessels appear patent. The left vertebral artery is dominant. The basilar artery is patent. The P1 segment of left posterior cerebral artery is tortuous. The posterior cerebral arteries are patent bilaterally. The venous sinuses opacify normally. CT/CT angio head neck IMPRESSION: CT Head and Neck: 1. There are no acute bleeds or territorial infarcts. There are no masses or areas of abnormal enhancement. 2. There is diffuse volume loss and there are chronic microvascular ischemic changes. 3. There is a 3 mm nodule in the left upper lobe laterally. According to the UPDATED 2017 Fleischner Society recommendations, the advised follow-up imaging for nodules <6mm in the upper lobes is not necessarily required in low-risk patients. In high-risk patients with a nodule in the upper lobe and/or demonstrating suspicious morphology, an optional CT follow-up at 12 months may be obtained. If stable at 12 months, no further follow-up is recommended. CTA Head and Neck: 1. The study is severely degraded by patient motion artifact at the level of the foramen magnum and C1 and evaluation of the distal cervical internal carotid arteries and proximal vertebral arteries is suboptimal due to motion artifact. 2. There are mild atheromatous calcifications at the left carotid bifurcation, without significant stenosis. 4. Evaluation of the proximal intradural vertebral arteries is suboptimal due to motion artifact. 5. 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 This critical result was discussed with SHANNON Reis by telephone on 08/26/2023 at 2:10 PM and it was ascertained that the content and urgency of the report was understood at the time of direct communication. Dictated By: VANCE JAY MD Discharge Plan Discharge Clinical Impression: Hypertension, Medication refill, Abnormal CT of the head Patient Disposition: Home, Self-Care Instructions: Hypertension (ED), Nonruptured Cerebral Aneurysm (DC) Additional Instructions: You were seen in the emergency department due to elevated blood pressure and right-sided body pain. Your blood pressure was normal today. Please continue taking your at home lisinopril as directed. Your CT of your head showed a 3 mm saccular aneurysm arising off the mid M1 segment of the left middle cerebral artery. Please relay this information to your primary care physician you need this to be monitored. If any new or worsening symptoms occur including but not limited to severe headache, dizziness, chest pain, shortness for breath, please return for re- evaluation. Prescriptions: New lisinopril 40 mg tablet 40 mg PO DAILY Qty: 30 0RF No Action dexamethasone 6 mg tablet 6 mg PO DAILY Qty: 3 0RF atorvastatin 40 mg tablet 40 mg PO BEDTIME Qty: 30 0RF losartan-hydrochlorothiazide 100-25 mg tablet 1 tab PO DAILY Qty: 30 0RF loratadine 10 mg tablet 10 mg PO DAILY sertraline 50 mg tablet 50 mg PO QAM valsartan-hydrochlorothiazide 320-25 mg tablet 1 tab PO DAILY pyridoxine (vitamin B6) 50 mg capsule 50 mg PO DAILY Qty: 30 0RF Interventions: ED Discharge Assessment Last Done: 08/26/23 16:48 Discharge Date/Time: 08/26/23 16:48 Print Language: Cook Islander
--- NOTE | 2023-08-26 11:31 | ECG_ITS ---
Test Reason : ELEVATED BP Blood Pressure : / mmHG Vent. Rate : 058 BPM Atrial Rate : 058 BPM P-R Int : 158 ms QRS Dur : 090 ms QT Int : 380 ms P-R-T Axes : 018 -04 088 degrees QTc Int : 373 ms Sinus bradycardia Minimal voltage criteria for LVH, may be normal variant ( R in aVL ) Nonspecific T wave abnormality Abnormal ECG When compared with ECG of 27-SEP-2022 10:18, No significant change was found Referred By: Jaycee Morin Electronically Signed By:LATRELL VO MD
[2023-08-26 12:15] LABS: MANUAL DIFF FLAG NO
[2023-08-26 12:19] LABS: Basophils Percent Auto 0.6 % (0-2); Eosinophils Absolute Auto 0.2 X10*3/uL (0.0-0.4); Eosinophils Percent Auto 2.8 % (0-4); Hematocrit 44.5 % (37.0-47.0); Hemoglobin 14.8 g/dl (12.0-16.0); Imm Gran Abs Auto 0.01 X10*3/uL (0.00-0.03); Imm Gran Pct Auto 0.2 % (0.0-0.4); Lymphocytes Absolute Auto 2.1 X10*3/uL (1.2-4.9); Lymphocytes Percent Auto 33.5 % (20-40); Mean Corpuscular HGB Conc 33.3 g/dl (31.0-35.0); Mean Corpuscular Hemoglobin 30.3 pg (27.0-33.0); Mean Platelet Volume 9.9 fL (9.4-12.3); Monocytes Absolute Auto 0.5 X10*3/uL (0.1-1.2); Monocytes Percent Auto 8.3 % (2-11); Neutrophils Absolute Auto 3.4 x10*3/uL (2.0-8.3); Neutrophils Percent Auto 54.6 % (45-73); Platelet Count 222 X10*3/uL (160-400); Red Blood Count 4.89 X10*6/uL (4.20-5.50); Red Cell Distribution Width 12.5 % (11.0-16.0); White Blood Count 6.2 X10*3/uL (4.8-10.8)
[2023-08-26 12:29] LABS: Alanine Aminotransferase 18 U/L (0-31); Albumin Level 4.3 g/dL (3.5-5.0); Alkaline Phosphatase 91 U/L (39-117); Anion Gap 10 (12-20); Aspartate Amino Transferase 18 U/L (5-31); Bilirubin Total 0.6 mg/dL (0.0-1.0); Blood Urea Nitrogen 11 mg/dL (9-16); Calcium 9.2 mg/dL (8.4-10.2); Carbon Dioxide 29 mmol/L (22-29); Chloride 107 mmol/L (96-108); Creatinine Clr Calc Pharmacy 68.8; Estimated Glomerular Filt Rate > 60; Glucose Random 98 mg/dL (60-115); Lipase 25 U/L (8-78); Magnesium 2.1 mg/dL (1.6-2.6); Potassium 3.5 mmol/L (3.3-5.1); Sodium 142 mmol/L (135-145); Total Protein 7.2 g/dL (6.5-8.0)
[2023-08-26 12:52] LABS: Troponin-I High Sensitivity 2.7 ng/L (<3.5-17.0)
[2023-08-26] MEDS: iohexoL 350 MG/ML 100 ML INFUS..BTL IV (13:24)
[2023-08-26] MEDS: Famotidine/PF 20 MG/2 ML VIAL IVPUSH (13:35)
[2023-08-26] MEDS: methylPREDNISolone Sod Succ 125 MG/2 ML VIAL IVPUSH (13:35)
[2023-08-26] MEDS: diphenhydrAMINE HCL 50 MG/ML VIAL IVPUSH (13:35)
[2023-08-26 15:30] VITALS: BP 158/75; PULSE 58; RESP 16; TEMP 36.6; O2SAT 97
[2023-08-26 16:48] VITALS: BP 158/75; PULSE 58; RESP 16; TEMP 36.6; O2SAT 97
== END 2023-08-26 16:48 | disposition home or self-care (01) ==
PROVIDERS: Physician Assistant Medical; Emergency Provider Emergency Medicine; PCP Internal Medicine
DX: I10 Essential (primary) hypertension (principal); Z76.0 Encounter for issue of repeat prescription; E78.00 Pure hypercholesterolemia, unspecified; R93.0 Abnormal findings on diagnostic imaging of skull and head, not elsewhere classified; Z79.899 Other long term (current) drug therapy
CPT/HCPCS: 36415; 70496; 70498; 80053; 83690; 83735; 84484; 85025; 93005; 96374; 96375; 99283; 99284; J1200; J2919; Q9967

== ENCOUNTER → 2023-08-26 11:31 | Outpatient (BNV) | payer OTHER, SELFPAY | PROVIDERS: Emergency Provider Emergency Medicine; PCP Internal Medicine; Visit Provider Internal Medicine Cardiovascular Disease | DX: R94.31 Abnormal electrocardiogram [ECG] [EKG] (principal) | CPT/HCPCS: 93010 ==

== ENCOUNTER 2023-09-14 12:13 | Outpatient (REF) | payer OTHER, SELFPAY | END 2023-09-14 12:14 | disposition home or self-care (01) | LOC: HO.MAMMO 12:13 | PROVIDERS: Visit Provider Internal Medicine | DX: Z13.89 Encounter for screening for other disorder (principal) ==

== ENCOUNTER 2023-10-19 07:48 | Outpatient (REF) | payer MEDICARE, OTHER, SELFPAY ==
--- NOTE | ~2023-10-19 | MM_ITS ---
EXAMINATION: MM SCREENING DIGITAL BREAST TOMOSYNTHESIS, BILATERAL CLINICAL INFORMATION: Screening. Asymptomatic. COMPARISON: Mammography: This study is compared with prior exams dating back to 2018. TECHNIQUE: Digital breast tomosynthesis is performed in both the craniocaudal and mediolateral oblique views along with computer-aided detection (CAD). Synthesized 2D images are generated from the tomosynthesis. FINDINGS: There are scattered areas of fibroglandular density (ACR BI-RADS breast composition Category b). There are no significant masses, abnormal calcifications, or other abnormalities. MM/MM tomosynthesis screening BI IMPRESSION: No mammographic evidence of malignancy. ASSESSMENT: BI-RADS BI-RADS 1 - Negative RECOMMENDATION: Routine annual mammography screening. 1 year F/U This examination should not preclude the clinical evaluation of a suspicious palpable abnormality. This patient's information was entered into a reminder system with a target due date for their next mammogram. Electronically signed by: Ramonita Copeland MD 11/16/2023 09:12 AM EDT
== END 2023-10-19 07:49 | disposition home or self-care (01) ==
LOC: HO.MAMMO 07:48
PROVIDERS: PCP Internal Medicine; Visit Provider Internal Medicine
DX: Z12.31 Encounter for screening mammogram for malignant neoplasm of breast (principal)
CPT/HCPCS: 77063; 77067

== ENCOUNTER → 2023-10-19 08:30 | Outpatient (BNV) | payer MEDICARE, OTHER, SELFPAY | PROVIDERS: PCP Internal Medicine; Visit Provider Radiology Diagnostic Radiology | DX: Z12.31 Encounter for screening mammogram for malignant neoplasm of breast (principal) | CPT/HCPCS: 77063; 77067 ==

== ENCOUNTER 2023-11-02 10:00 | Outpatient (RCR) | payer MEDICARE, OTHER, SELFPAY | END 2023-12-05 15:48 | disposition home or self-care (01) | LOC: HO.PT 10:00 | PROVIDERS: PCP Internal Medicine; Visit Provider Physician Assistant | DX: M54.2 Cervicalgia (principal) | CPT/HCPCS: 97110; 97140; 97161 ==

== ENCOUNTER 2023-11-16 15:22 | Emergency (ER) | payer SELFPAY ==
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
[2023-11-16 15:36] VITALS: BP 170/79; PULSE 76; RESP 16; TEMP 36.4; O2SAT 99; BMI 26.6
[2023-11-16 17:57] VITALS: BP 170/79; PULSE 76; RESP 16; TEMP 36.4; O2SAT 99
== END 2023-11-16 17:57 | disposition home or self-care (01) ==
PROVIDERS: Emergency Provider Emergency Medicine; PCP Internal Medicine
DX: S16.1XXA Strain of muscle, fascia and tendon at neck level, initial encounter (principal); V43.52XA Car driver injured in collision with other type car in traffic accident, initial encounter; Y93.89 Activity, other specified; Y92.414 Local residential or business street as the place of occurrence of the external cause; Y99.9 Unspecified external cause status
CPT/HCPCS: 70450; 72125; 99282; 99284

== ENCOUNTER 2023-11-17 07:29 | Outpatient (REF) | payer MEDICARE, OTHER, SELFPAY ==
[2023-11-17 08:34] LABS: Cholesterol 162 mg/dL (<200); HDL Cholesterol 43 mg/dL (>40); LDL Cholesterol Calculated 97 mg/dL (<100); Triglycerides 112 mg/dL (<150)
[2023-11-17 08:56] LABS: Thyroid Stimulating Hormone 2.18 uIU/mL (0.32-4.0)
== END 2023-11-17 07:30 | disposition home or self-care (01) ==
LOC: HO.LAB 07:29
PROVIDERS: PCP Internal Medicine; Visit Provider Internal Medicine
DX: E78.00 Pure hypercholesterolemia, unspecified (principal); I10 Essential (primary) hypertension; I67.1 Cerebral aneurysm, nonruptured; Z68.29 Body mass index [BMI] 29.0-29.9, adult
CPT/HCPCS: 36415; 80061; 84443

== ENCOUNTER 2023-11-22 12:50 | Outpatient (AMB) | payer MEDICARE, OTHER, SELFPAY ==
--- NOTE | 2023-11-22 13:35 | MHC.OFFVIS ---
Intake Visit Reasons: Renal stones- follow up Intake Note: patient is here today for renal stones f/u Medications: pyridoxine Blood thinners: none allergies:none Talent Development Analyst Required: No Allergies iohexol [From Omnipaque] Allergy (Intermediate, Verified 11/22/23 13:37) Itching Medication List - Last Reconciled 11/22/23 by Erwin Domingo MD atorvastatin 40 mg PO BEDTIME dexamethasone 6 mg PO DAILY lidocaine 5% (Lidoderm) 1 patch topical DAILY lisinopril 40 mg PO DAILY loratadine 10 mg PO DAILY losartan-hydrochlorothiazide 100-25 mg 1 tab PO DAILY pyridoxine (vitamin B6) 50 mg PO DAILY sertraline 50 mg PO QAM valsartan-hydrochlorothiazide 320-25 mg 1 tab PO DAILY HPI Comments Details: 11/22/2023--Yari is a 73 year old female who is followed for nephrolithiasis. She was last seen 12/30/2021. She states she has been hydrating well and adding lemon to the water as well as taking vitamin B6. She did run out of the prescription and has been using the [id number], but would like a new prescription. She denies UTI symptoms. Plan to continue to monitor kidneys. Review of chart: 12/30/2021 Yariis here for follow-up for nephrolithiasis. PMH Htn, Hyperlipidemia. She had a recent renal ultrasound which I have reviewed the results with her there is a 3 mm left kidney stone. No hydronephrosis. The patient denies gross hematuria or flank pain. PFSH Medical History Hyperlipidemia HTN (hypertension) UTI (urinary tract infection) Varicose veins of bilateral lower extremities with other complications Renal stones Hypertension Hypercholesteremia Surgical History H/O section Family History Mother HTN (hypertension) Father HTN (hypertension) Social History Household Members: Family Housing: House Do you presently have visiting nurse or other home services: No Alcohol intake: never Patient Tobacco Use Status: Former Tobacco user service: No Current occupational status: retired Review of Systems Const All systems reviewed & are unremarkable except as noted in HPI and below Reports no additional complaints Eyes Reports no additional complaints ENT Reports no additional complaints Card Reports no additional complaints Resp Reports no additional complaints GI Reports no additional complaints Reports as per HPI Musc Reports no additional complaints Skin/Breast Reports system reviewed and no additional complaints, except as documented Neuro Reports no additional complaints Psych Reports no additional complaints Endo Reports no additional complaints Soto/Lymph Reports no additional complaints Aller/Immun Reports no additional complaints Results AMB Urinalysis, Automated UA Leukoctes 0 Aleshia/uL Last Edit by CALDERON Nur on 11/22/23 14:08 UA Nitrite Negative Last Edit by Diana Matute CCM on 11/22/23 14:08 UA Urobilinogen 0.2 mg/dL Last Edit by Diana Matute CCM on 11/22/23 14:08 UA Protein 15 mg/dL Last Edit by Diana Matute [facility] on 11/22/23 14:08 UA pH 6.0 Last Edit by Diana Matute [facility] on 11/22/23 14:08 UA Blood 10 Kenny/uL Last Edit by Diana Matute CCM on 11/22/23 14:08 UA Specific [place] 1.020 Last Edit by Diana Matute [facility] on 11/22/23 14:08 UA Ketone Negative Last Edit by Diana Matute CCM on 11/22/23 14:08 UA Bilirubin 0 mg/dL Last Edit by Diana Matute [facility] on 11/22/23 14:08 UA Glucose 0 mg/dL Last Edit by Diana Matute [facility] on 11/22/23 14:08 Results Reviewed Results Reviewed: Laboratory Last Values Urine pH (Auto) 6.0 11/22/23 14:08 Specific [place] (Auto) 1.020 11/22/23 14:08 Urine Protein (Auto) 15 mg/dL 11/22/23 14:08 Glucose (UA)(Auto) 0 mg/dL 11/22/23 14:08 Urine Ketones (Auto) Negative 11/22/23 14:08 Urine Blood (Auto) 10 Kenny/uL 11/22/23 14:08 Urine Nitrite (Auto) Negative 11/22/23 14:08 Urine Bilirubin (Auto) 0 mg/dL 11/22/23 14:08 Urine Urobilinogen (Auto) 0.2 mg/dL 11/22/23 14:08 Leukocyte Esterase (Auto) 0 Aleshia/uL 11/22/23 14:08 Date of Service: 12/20/21 EXAMINATION: US RETROPERITONEAL LIMITED (RENAL ONLY) CLINICAL INFORMATION: Calculus of kidney. COMPARISON: Ultrasound retroperitoneal limited (renal only) 05/20/2021 and 07/19/2018. CT abdomen and pelvis with contrast 10/28/2018. X-ray abdomen KUB 10/11/2017. TECHNIQUE: Real-time imaging of the kidneys.? FINDINGS: RIGHT KIDNEY: 10.9 x 4.4 x 4.9 cm (SAG x AP x TRV). The kidney is normal in size, contour, and echogenicity. Renal cortical thickness is normal. No calculi or focal parenchymal lesions. No hydronephrosis. LEFT KIDNEY: 11.2 x 4.6 x 5.1 cm (SAG x AP x TRV). The kidney is normal in size, contour, and echogenicity. Renal cortical thickness is normal. There is a 3 mm stone in the mid to upper pole. No focal parenchymal lesions or hydronephrosis. IMPRESSION: Small left renal stone. Assessment & Plan Assessment & Plan (1) Renal stones: Code(s): N20.0 - Calculus of kidney Category: Medical Plan Check Renal U/S, will call if major change in stone burden. FU one year. Cont Vit b6 50 mg daily Orders: Orders AMB Urinalysis Automated Today Z13.9 - Encounter for screening, unspecified US renal BI Today N20.0 - Calculus of kidney Medications: Refilled pyridoxine (vitamin B6) 50 mg PO DAILY 30 caps 5RF Patient Instructions: The patient had an opportunity to ask questions regarding treatment plan. The patient expressed understanding and agreement with the above treatment plan. The patient is aware they should contact our office by phone for worsening of their current condition or the appearance of new symptoms. Compliance is encouraged with any medications and followup testing that is ordered. It is a privilege to be allowed the opportunity to participate in the urologic care of your patient. If you have any questions or concerns regarding treatment for the above conditions please do not hesitate to contact me. The office telephone contact is [phone]. This note is constructed in part using voice recognition software. While every effort has been made to ensure accuracy crusher loader equipment operator errors may have been included. Yours sincerely, Erwin Domingo MD Coding Level of Care Code Est Pt Level 3 (46958) Diagnoses Renal stones N20.0
== END 2023-11-22 14:33 | disposition home or self-care (01) ==
PROVIDERS: PCP Internal Medicine; Visit Provider Urology
DX: Z13.9 Encounter for screening, unspecified (principal); N20.0 Calculus of kidney
CPT/HCPCS: 99213

== ENCOUNTER → 2023-11-22 12:50 | Outpatient (BNVA) | payer MEDICARE, OTHER, SELFPAY | PROVIDERS: PCP Internal Medicine; Visit Provider Urology | DX: N20.0 Calculus of kidney (principal) | CPT/HCPCS: 81003; 99212 ==

== ENCOUNTER 2024-01-12 12:56 | Outpatient (REF) | payer MEDICARE, OTHER, SELFPAY | END 2024-01-12 12:57 | disposition home or self-care (01) | LOC: HO.US 12:56 | PROVIDERS: PCP Internal Medicine; Visit Provider Urology | DX: N20.0 Calculus of kidney (principal) | CPT/HCPCS: 76775 ==

== ENCOUNTER 2024-11-21 08:22 | Outpatient (AMB) | payer MEDICARE, OTHER, SELFPAY ==
--- NOTE | 2024-11-21 08:23 | MHC.OFFVIS ---
Intake Visit Reasons: 1y follow up Intake Note: Patient presents today via telehealth for 1yr/follow up Urology Medication:Vitamin B6 Blood Thinner:None Antibiotic Allergies:None Supervisor Electronic Testing Required: No Allergies iohexol (From Omnipaque) Allergy (Intermediate, Verified 11/21/24 08:25) Itching Medication List - Last Reconciled 11/21/24 by Erwin Domingo MD atorvastatin 40 mg PO BEDTIME losartan-hydrochlorothiazide 100-25 mg 1 tab PO DAILY pyridoxine (vitamin B6) 50 mg PO DAILY HPI Comments Details: 11/21/24-- History of Present Illness The patient is a 74-year-old female presenting with nephrolithiasis. The left kidney stone was initially identified in a prior ultrasound, measuring 3 mm, and has now increased to 5 mm as per the latest ultrasound in December. The stone has not caused significant symptoms, and the patient prefers to continue monitoring rather than pursuing immediate intervention. Preventative measures include ensuring adequate hydration and dietary monitoring to prevent further stone formation. The patient is compliant with taking vitamin B6 as part of her preventative care regimen. Results - Ultrasound: Left kidney stone measured at 5 mm, previously 3 mm. Plan 1. Nephrolithiasis (Kidney Stone) - Continue monitoring the kidney stone with annual ultrasound. - Encourage adequate hydration and dietary monitoring. - Patient to continue vitamin B6 supplementation. - 24 hr urine 11/22/2023--Yari is a 73 year old female who is followed for nephrolithiasis. She was last seen 12/30/2021. She states she has been hydrating well and adding lemon to the water as well as taking vitamin B6. She did run out of the prescription and has been using the [id number], but would like a new prescription. She denies UTI symptoms. Plan to continue to monitor kidneys. 12/30/2021 Yariis here for follow-up for nephrolithiasis. PMH Htn, Hyperlipidemia. She had a recent renal ultrasound which I have reviewed the results with her there is a 3 mm left kidney stone. No hydronephrosis. The patient denies gross hematuria or flank pain. FORMERLY [facility], [facility]–1983 Medical History Hyperlipidemia HTN (hypertension) UTI (urinary tract infection) Varicose veins of bilateral lower extremities with other complications Renal stones Hypertension Hypercholesteremia Surgical History H/O section Family History Mother HTN (hypertension) Father HTN (hypertension) Social History Household Members: Family Housing: House Do you presently have visiting nurse or other home services: No Alcohol intake: never Patient Tobacco Use Status: Former Tobacco user service: No Current occupational status: retired Review of Systems Const All systems reviewed & are unremarkable except as noted in HPI and below Reports no additional complaints Eyes Reports no additional complaints ENT Reports no additional complaints Card Reports no additional complaints Resp Reports no additional complaints GI Reports no additional complaints Reports as per HPI Musc Reports no additional complaints Skin/Breast Reports system reviewed and no additional complaints, except as documented Neuro Reports no additional complaints Psych Reports no additional complaints Endo Reports no additional complaints Soto/Lymph Reports no additional complaints Aller/Immun Reports no additional complaints Telehealth Telehealth Telehealth Platform: [employer] Location of provider rendering services: practice address Location of patient: address on file Patient Identification confirmed using: Name, : Yes Telehealth method: video Patient verbally consented to treatment: Yes Patient verbally consented to billing insurance company: Yes Patient informed of any privacy concerns related to visit: Yes Results Reviewed Results Reviewed: Date of Service: 01/12/24 US RETROPERITONEAL LIMITED (RENAL ONLY) CLINICAL INFORMATION: Calculus of kidney. COMPARISON: Renal ultrasound 12/20/2021 and 05/20/2021. CT abdomen and pelvis 10/28/2018. X-ray KUB 10/11/2017. TECHNIQUE: Limited visualization due to bowel gas. Real-time imaging of the kidneys. FINDINGS: RIGHT KIDNEY: 10.6 x 4.5 x 4.7 cm (SAG x AP x TRV). Mild RIGHT pelvocaliectasis. No obstructing renal calculi. Renal cortical thickness is normal. Limited visualization. LEFT KIDNEY: 11.2 x 4.7 x 4.2 cm (SAG x AP x TRV). Mild LEFT pelvocaliectasis. A 0.5 cm LEFT renal upper pole calculus. Renal cortical thickness is normal. Limited visualization. IMPRESSION: Mild bilateral pelvocaliectasis. A 0.5 cm LEFT renal upper pole calculus. Limited visualization. Date of Service: 12/20/21 EXAMINATION: US RETROPERITONEAL LIMITED (RENAL ONLY) CLINICAL INFORMATION: Calculus of kidney. COMPARISON: Ultrasound retroperitoneal limited (renal only) 05/20/2021 and 07/19/2018. CT abdomen and pelvis with contrast 10/28/2018. X-ray abdomen KUB 10/11/2017. TECHNIQUE: Real-time imaging of the kidneys.? FINDINGS: RIGHT KIDNEY: 10.9 x 4.4 x 4.9 cm (SAG x AP x TRV). The kidney is normal in size, contour, and echogenicity. Renal cortical thickness is normal. No calculi or focal parenchymal lesions. No hydronephrosis. LEFT KIDNEY: 11.2 x 4.6 x 5.1 cm (SAG x AP x TRV). The kidney is normal in size, contour, and echogenicity. Renal cortical thickness is normal. There is a 3 mm stone in the mid to upper pole. No focal parenchymal lesions or hydronephrosis. IMPRESSION: Small left renal stone. Assessment & Plan Assessment & Plan (1) Renal stones: Code(s): N20.0 - Calculus of kidney Category: Medical (2) Kidney stone on left side: Code(s): N20.0 - Calculus of kidney Category: Medical Plan Plan 1. Nephrolithiasis (Kidney Stone) - Continue monitoring the kidney stone with annual ultrasound. - Encourage adequate hydration and dietary monitoring. - Patient to continue vitamin B6 supplementation. Orders: Orders US renal BI 10 Months N20.0 - Calculus of kidney Medications: Refilled pyridoxine (vitamin B6) 50 mg PO DAILY 30 caps 8RF Patient Instructions: The patient had an opportunity to ask questions regarding treatment plan. The patient expressed understanding and agreement with the above treatment plan. The patient is aware they should contact our office by phone for worsening of their current condition or the appearance of new symptoms. Compliance is encouraged with any medications and followup testing that is ordered. It is a privilege to be allowed the opportunity to participate in the urologic care of your patient. If you have any questions or concerns regarding treatment for the above conditions please do not hesitate to contact me. The office telephone contact is [phone]. This note is constructed in part using voice recognition software. While every effort has been made to ensure accuracy store sales manager errors may have been included. Yours sincerely, Erwin Domingo MD Scribe Plan - Not visible on output: Patient was informed and verbally consented to the use of an ambient scribe for clinic note documentation during this visit. Coding Level of Care Code Tele Est Pt Level 3 (58834) Diagnoses Renal stones N20.0 Kidney stone on left side N20.0
--- OUTSIDE RECORDS SUMMARY | 2024-11-21 08:49 | XMS_ITS | Clinical Summary ---
Author Organization [employer] Address [address] [place] [address] Care Team Providers Care Airplane Flight Attendant Name Role Phone Unavailable Primary Care Provider Unavailabl e Social History Tobacco Use Types Packs/Day Years Used Date Smoking Tobacco: Never Assessed Comments Unknown Sex and Gender Information Value Date Recorded Sex Assigned at Female 12/27/2021 10:24 AM EDT Legal Sex Female 10:24 AM EDT Gender Identity Female 12/27/2021 10:24 AM EDT Sexual Orientation Straight 12/27/2021 10 :24 AM EDT Plan of Treatment Health Maintenance Due Date Last Done Comments CT Colonography 1949 Colonoscopy 1949 Colorectal Cancer Screening 1949 Depression Screening 1949 FIT DNA/Cologuard 1949 FIT 1949 FOBT 1949 Sigmoidoscopy 1949 Alcohol/Substance Use Screening 1961 Tobacco Screening 1961 DTaP/Tdap/Td Vaccines (1 - Tdap) 1968 Pneumococcal Vaccine: 50+ Ye ars (1 of 1 - PCV) 1999 Zoster Vaccines (1 of 2) 1999 RSV Patients and Pa tients Aged 60 years or older (1 - 1-dose 75+ series) 2024 COVID-19 Vaccine (1 - 2023-2 5 season) 2024 Influenza Vaccine (#1) 2024 HIB Vaccines Aged Out No longer eligi ble based on patient's age to complete this topic HPV Vaccines Aged Out No longer eligi ble based on patient's age to complete this topic Hepatitis A Vaccines Aged Out No long er eligible based on patient's age to complete this topic Hepatitis B Vaccines Aged Out No long er eligible based on patient's age to complete this topic IPV Vaccines Aged Out No longer eligi ble based on patient's age to complete this topic Meningococcal B Vaccine Aged Out No l onger eligible based on patient's age to complete this topic Meningococcal Vaccine Aged Out No jose kylie eligible based on patient's age to complete this topic RSV under 20 months Aged Out No longe r eligible based on patient's age to complete this topic Rotavirus Vaccines Aged Out No longer eligible based on patient's age to complete this topic
--- OUTSIDE RECORDS SUMMARY | 2024-11-21 08:49 | XMS_ITS | Clinical Summary ---
Author Organization [employer] [facility] Address [address] [place] [address] Care Team Providers Care Welder Plastic Name Role Phone Unavailable Primary Care Provider Unavailabl e Social History Tobacco Use Types Packs/Day Years Used Date Smoking Tobacco: Never Assessed Sex and Gender Information Value Date Recorded Sex Assigned at Not on file Gender Identity Not on file Sexual Orientation Not on file Plan of Treatment Not on file
--- OUTSIDE RECORDS SUMMARY | 2024-11-21 08:49 | XMS_ITS | Patient Health Record ---
Author Organization [facility] Address [address] [place] [address] Care Team Providers Care Boardmarker Name Role Phone Patricia Colunga Primary Care Provider Unavailab Wei Whipple Jr Unavailable [phone] Reason For Referral No Information Plan Of Treatment No Information Insurance Providers Payer Name Payer Address Payer Phone Subscriber Number Group Number Insured Name Patient Relationship to Insured Coverage Start Date Coverage End Date MEDICARE OF [facility] [address] [place] [id number] [phone] [id number] ABDON CHEN Self - patient is the insured
--- OUTSIDE RECORDS SUMMARY | 2024-11-21 08:49 | XMS_ITS | Encounter Summary ---
Author Organization [employer] Address [address] [place] [address] Care Team Providers Care Questioned Documents Examiner Name Role Phone Unavailable Primary Care Provider Unavailabl e Encounter Details Date Type Department Care Team (Latest Contact Info) Description 11/21/2018 Abstract C CONVERSIONS Dental, Provider, DDS Social History Tobacco Use Types Packs/Day Years Used Date Smoking Tobacco: Never Assessed Comments Unknown Sex and Gender Information Value Date Recorded Sex Assigned at Female 12/27/2021 10:24 AM EDT Legal Sex Female 10:24 AM EDT Gender Identity Female 12/27/2021 10:24 AM EDT Sexual Orientation Straight 12/27/2021 10 :24 AM EDT documented as of this encounter Plan of Treatment Not on file documented as of this encounter Visit Diagnoses Not on filedocumented in this encounter
== END 2024-11-21 09:18 | disposition home or self-care (01) ==
LOC: HO.HUSH 08:22
PROVIDERS: Visit Provider Urology
DX: N20.0 Calculus of kidney (principal)
CPT/HCPCS: 99213